=== PATIENT | male | born 1970 | race Caucasian/White ===

== ENCOUNTER → 2019-02-08 | Outpatient (CLI) | payer BC ==
--- NOTE | 2019-02-10 11:07 | MR ---
EXAMINATION TYPE: MR knee RT wo con DATE OF EXAM: 02/08/2019 COMPARISON: None HISTORY: Rt knee pain/ID, prior scope TECHNIQUE: Multiplanar, multisequence imaging of the right knee is performed without IV contrast. FINDINGS: Anterior cruciate, posterior cruciate, medial collateral, and lateral collateral ligaments intact. Lateral meniscus has a normal appearance. Medial meniscus has a normal appearance. There is a trace amount of fluid in the suprapatellar bursa. Quadriceps and patellar tendons intact. Mild arthropathy of the patellofemoral joint and medial compartment of the knee with no evidence of e rosive change. No active marrow edema or contusion. There is a multilocular cystic change involving the patella likely reactive very minimal grade II cho ndromalacia along the lateral patellar facet. Mild arthropathy of the lateral patellar facet. There is cystic changes seen in the popliteal fossa surrounding the posterior cruciate ligament. As n oted above PCL is intact with no evidence of tear. There is a small amount of edema within Hoffa's fat pad. There is suggestion of mild cartilaginous th inning along the anterior margin of the medial femoral condyle which may represent a focal area of ch ondromalacia. IMPRESSION: 1. No evidence of meniscal or ligamentous tear. 2. Osteoarthritis with a focal area of chondromalacia involving the anterior margin of the medial fem oral condyle. 3. There is cystic changes involving the posterior margin of the knee joint near the level of the PCL with no diagnostic evidence of PCL injury. May been the basis of synovial or ganglion cysts or small popliteal fossa cyst. 4. Nonspecific marrow edema within Hoffa's fat pad occasionally may be seen with fat pad impingement syndrome. There does appear to be a area of localized chondromalacia involving the medial margin of t he anterior medial femur at this level. Correlate clinically
== END | disposition home or self-care (01) ==
LOC: RADMRIMAIN 20:04
PROVIDERS: ATTEND Internal Medicine
DX: M17.11 Unilateral primary osteoarthritis, right knee (principal); M94.261 Chondromalacia, right knee; M25.861 Other specified joint disorders, right knee

== ENCOUNTER 2019-06-23 17:49 | Observation (INO) | payer BC ==
[2019-06-23] MEDS ORDERED: NITROGLYCERIN SL TABS 0.4 MG TAB SUBLINGUAL STA (18:25)
[2019-06-23] MEDS ORDERED: ASPIRIN 81 MG PO STA (18:25)
[2019-06-23] MEDS ORDERED: SODIUM CHLORIDE 0.9% 1,000 ML IV STA (18:25)
[2019-06-23 18:43] LABS: Basophils # (A) 0.1 k/uL (0-0.2); Basophils % (A) 1 %; Eosinophils # (A) 0.3 k/uL (0-0.7); Eosinophils % (A) 4 %; HCT 46.1 % (39.0-53.0); HGB 15.5 gm/dL (13.0-17.5); Lymphocytes % (A) 33 %; MCH 30.8 pg (25.0-35.0); MCHC 33.6 g/dL (31.0-37.0); MCV 91.9 fL (80.0-100.0); Mean Platelet Volume 6.4; Monocytes # (A) 0.6 k/uL (0-1.0); Monocytes % (A) 6 %; Neutrophils % (A) 55 %; Platelet Count 273 k/uL (150-450); RBC 5.02 m/uL (4.30-5.90); RDW 12.8 % (11.5-15.5); WBC 9.1 k/uL (3.8-10.6)
--- NOTE | 2019-06-23 18:57 | XR ---
EXAMINATION TYPE: XR chest 2V DATE OF EXAM: 06/23/2019 COMPARISON: EXAMINATION TYPE: XR chest 2V DATE OF EXAM: 06/23/2019 COMPARISON: NONE HISTORY: Chest pain TECHNIQUE: 2 views FINDINGS: Heart and mediastinum are normal. There is mild coarsening of the lower lobe lung markings. There is no heart failure. There are chest leads. Costophrenic angles are clear. IMPRESSION: Slight increased lung markings. No heart failure or pulmonary consolidation.
[2019-06-23 18:59] LABS: D-Dimer 0.28 mg/L FEU (<0.60); INR 0.8 (<1.2); Partial Thromboplastin Time 25.5 sec (22.0-30.0); Prothrombin Time 9.3 sec (9.0-12.0)
[2019-06-23 19:01] LABS: ALT 24 U/L (21-72); AST 21 U/L (17-59); African American GFR (CKD) >90 (>60 ml/min/1.73 sqM); Albumin 4.1 g/dL (3.5-5.0); Alkaline Phosphatase 99 U/L (38-126); Anion Gap 9 mmol/L; Blood Urea Nitrogen 13 mg/dL (9-20); Calcium 9.7 mg/dL (8.4-10.2); Carbon Dioxide 22 mmol/L (22-30); Chloride 108 mmol/L (98-107); Glucose 94 mg/dL (74-99); Potassium 4.7 mmol/L (3.5-5.1); Sodium 139 mmol/L (137-145); Total Bilirubin 0.2 mg/dL (0.2-1.3); Total Protein 7.1 g/dL (6.3-8.2)
--- NOTE | 2019-06-23 19:02 | ED ---
General Adult HPI - General Source: patient, RN notes reviewed, old records reviewed Mode of arrival: wheelchair Limitations: no limitations <Jose Charles - Last Filed: 06/23/19 20:06> <Maira Llanos - Last Filed: 06/24/19 01:13> - General Chief complaint: Chest Pain Stated complaint: Chest Pain Time Seen by Provider: 06/23/19 18:18 - History of Present Illness Initial comments: 49-year-old male patient with past history of reported IA with stent placement approximately 5 years ago presents to ED with chief complaint of chest pain which began last night, and waxing and waning throughout the day. Patient reports that sharp pain in his left parasternal region. She denies any association with exertion, denies any associated symptoms including diaphoresis, nausea vomiting. Patient does report that he did have some pain radiating to his left arm. Denies any shortness of breath. Denies any other complaints at this time. Systemic: Pt denies fatigue, fever/chills, rash. Pt denies weakness, night sw eats, weight loss. Neuro: Pt denies headache, visual disturbances, syncope or pre-syncope. HEENT: Pt denies ocular discharge or irritation, otalgia, rhinorrhea, pharyngitis or notable lymphadenopathy. Cardiopulmonary: Pt deniesSOB, heart palpitations, dyspnea on exertion. Abdominal/GI: Pt denies abdominal pain, n/v/d. : Pt denies dysuria, burning w/ urination, frequency/urgency. Denies new onset urinary or bowel incontinence. MSK: Pt denies myalgia, loss of strength or function in extremities. Neuro: Pt denies new onset weakness, paresthesias. (Jose Charles) - Related Data Home Medications Medication Instructions Recorded Confirmed Diclofenac Sodium [Voltaren] 75 mg PO BID 06/23/19 06/23/19 Allergies Allergy/AdvReac Type Severity Reaction Status Date / Time citalopram hydrobromide Allergy Rash/Hives Verified 06/23/19 18:49 [From Celexa] Review of Systems ROS Other: All systems not noted in ROS Statement are negative. <Jose Charles - Last Filed: 06/23/19 20:06> ROS Other: All systems not noted in ROS Statement are negative. <Viet,Maira E - Last Filed: 06/24/19 01:13> ROS Statement: Those systems with pertinent positive or pertinent negative responses have been documented in the HPI. Past Medical History Past Medical History: Coronary Artery Disease (CAD), Hyperlipidemia, Hypertension, Myocardial Infarction (IA) History of Any Multi-Drug Resistant Organisms: None Reported Past Surgical History: Heart Catheterization With Stent Past Psychological History: No Psychological Hx Reported Smoking Status: Current every day smoker Past Alcohol Use History: None Reported Past Drug Use History: None Reported <Jose Charles Evert - Last Filed: 06/23/19 20:06> - Past Family History Mother Additional Family Medical History / Comment(s): bipolar, osteoparosis Father Family Medical History: Coronary Artery Disease (CAD), Rheumatoid Arthritis (RA) Sister(s) Additional Family Medical History / Comment(s): bipolar Brother(s) Family Medical History: Coronary Artery Disease (CAD) Additional Family Medical History / Comment(s): AICD placement Son(s) Additional Family Medical History / Comment(s): aspergers Daughter(s) Family Medical History: No Reported History <Maira Llanos - Last Filed: 06/24/19 01:13> General Exam Limitations: no limitations <Cuauhtemoc Charlesothy Evert - Last Filed: 06/23/19 20:06> - General Exam Comments Initial Comments: Constitutional: NAD, AOX3, Pt has pleasant affect. HEENT: NC/AT, trachea midline, neck supple, no lymphadenopathy. Posterior pharynx non erythematous, without exudates. External ears appear normal, without discharge. Mucous membranes moist. Eyes PERRLA, EOM intact. There is no scleral icterus. No pallor noted. Cardiopulmonary: RRR, no murmurs, rubs or gallops, no JVD noted. Lungs CTAB in anterior and posterior marina. No peripheral edema. Abdominal exam: Abdomen soft and non-distended. Abdomen non-tender to palpation in all 4 quadrants. Bowel sounds active in LLQ. No hepatosplenomegaly. No ecchymosis Neuro: CN II-XII grossly intact. No nuchal rigidity. No raccon eyes, no moss sign, no hemotympanum. No cervical spinal tenderness. MSK: No posterior calf tenderness bilaterally, homans sign negative bilaterally. Posterior tibialis and radial pulse +2 bilaterally. Sensation intact in upper and lower extremities. Full active ROM in upper and lower extremities, 5/5 stregnth. (Jose Charles) Course Vital Signs 06/23/19 06/23/19 06/23/19 17:55 18:29 20:20 Temperature 98.1 F Pulse Rate 79 69 58 L Respiratory 18 18 18 Rate Blood Pressure 117/78 117/83 124/83 O2 Sat by Pulse 99 96 96 Oximetry 06/23/19 20:23 Temperature 98.1 F Pulse Rate 58 L Respiratory 18 Rate Blood Pressure 124/83 O2 Sat by Pulse 96 Oximetry Medical Decision Making - Lab Data Result diagrams: 06/23/19 18:30 06/23/19 18:30 - EKG Data -: EKG Interpreted by Me (and Dr. Llanos) <Jose Charles - Last Filed: 06/23/19 20:06> - Lab Data Result diagrams: 06/23/19 18:30 06/23/19 18:30 <Maira Llanos - Last Filed: 06/24/19 01:13> - Medical Decision Making 49-year-old male patient with past history of reported IA with stent placement approximately 5 years ago presents to ED with chief complaint of chest pain which began last night, and waxing and waning throughout the day. Patient reports that sharp pain in his left parasternal region. She denies any association with exertion, denies any associated symptoms including diaphoresis, nausea vomiting. Patient does report that he did have some pain radiating to his left arm. Denies any shortness of breath. Denies any other complaints at this time. Patient was in stable, afebrile. Physical exam didn't display acute pathology. Upon investigation is negative, d-dimer negative, troponin negative. BNP 22. EKG not concerning for acute ischemia. Chest pain did resolve with sublingual nitro. Case is discussed with attending physician Dr. Llanos who evaluated pt and discussed case with accepting physician Dr. Thorpe recommended initiation of low intensity heparin therapy and admission for she'll troponins and cardiology consultation. (Jose Charles) I, Dr. Maira Llanos, Personally saw and examined the patient. I have reviewed and agree with the FENDER REPAIRER/PA findings, including all diagnostic interpretations and treatment plans as written unless otherwise stated. I was present for the singh portions of any procedures and the inclusive time noted for any critical care treatment. (Maira Llanos) - Lab Data Lab Results 06/23/19 06/23/19 06/23/19 Range/Units 18:30 18:30 18:30 WBC 9.1 (3.8-10.6) k/uL RBC 5.02 (4.30-5.90) m/uL Hgb 15.5 (13.0-17.5) gm/dL Hct 46.1 (39.0-53.0) % MCV 91.9 (80.0-100.0) fL MCH 30.8 (25.0-35.0) pg MCHC 33.6 (31.0-37.0) g/dL RDW 12.8 (11.5-15.5) % Plt Count 273 (150-450) k/uL Neutrophils % 55 % Lymphocytes % 33 % Monocytes % 6 % Eosinophils % 4 % Basophils % 1 % Neutrophils # 5.0 (1.3-7.7) k/uL Lymphocytes # 3.0 (1.0-4.8) k/uL Monocytes # 0.6 (0-1.0) k/uL Eosinophils # 0.3 (0-0.7) k/uL Basophils # 0.1 (0-0.2) k/uL PT 9.3 (9.0-12.0) sec INR 0.8 (<1.2) APTT 25.5 (22.0-30.0) sec D-Dimer 0.28 (<0.60) mg/L FEU Sodium 139 (137-145) mmol/L Potassium 4.7 (3.5-5.1) mmol/L Chloride 108 H (98-107) mmol/L Carbon Dioxide 22 (22-30) mmol/L Anion Gap 9 mmol/L BUN 13 (9-20) mg/dL Creatinine 0.77 (0.66-1.25) mg/dL Est GFR (CKD-EPI)AfAm >90 (>60 ml/min/1.73 sqM) Est GFR (CKD-EPI)NonAf >90 (>60 ml/min/1.73 sqM) Glucose 94 (74-99) mg/dL Calcium 9.7 (8.4-10.2) mg/dL Magnesium 2.0 (1.6-2.3) mg/dL Total Bilirubin 0.2 (0.2-1.3) mg/dL AST 21 (17-59) U/L ALT 24 (21-72) U/L Alkaline Phosphatase 99 (38-126) U/L Troponin I (0.000-0.034) ng/mL NT-Pro-B Natriuret Pep pg/mL Total Protein 7.1 (6.3-8.2) g/dL Albumin 4.1 (3.5-5.0) g/dL 06/23/19 06/23/19 Range/Units 18:30 18:30 WBC (3.8-10.6) k/uL RBC (4.30-5.90) m/uL Hgb (13.0-17.5) gm/dL Hct (39.0-53.0) % MCV (80.0-100.0) fL MCH (25.0-35.0) pg MCHC (31.0-37.0) g/dL RDW (11.5-15.5) % Plt Count (150-450) k/uL Neutrophils % % Lymphocytes % % Monocytes % % Eosinophils % % Basophils % % Neutrophils # (1.3-7.7) k/uL Lymphocytes # (1.0-4.8) k/uL Monocytes # (0-1.0) k/uL Eosinophils # (0-0.7) k/uL Basophils # (0-0.2) k/uL PT (9.0-12.0) sec INR (<1.2) APTT (22.0-30.0) sec D-Dimer (<0.60) mg/L FEU Sodium (137-145) mmol/L Potassium (3.5-5.1) mmol/L Chloride (98-107) mmol/L Carbon Dioxide (22-30) mmol/L Anion Gap mmol/L BUN (9-20) mg/dL Creatinine (0.66-1.25) mg/dL Est GFR (CKD-EPI)AfAm (>60 ml/min/1.73 sqM) Est GFR (CKD-EPI)NonAf (>60 ml/min/1.73 sqM) Glucose (74-99) mg/dL Calcium (8.4-10.2) mg/dL Magnesium (1.6-2.3) mg/dL Total Bilirubin (0.2-1.3) mg/dL AST (17-59) U/L ALT (21-72) U/L Alkaline Phosphatase (38-126) U/L Troponin I <0.012 (0.000-0.034) ng/mL NT-Pro-B Natriuret Pep 22 pg/mL Total Protein (6.3-8.2) g/dL Albumin (3.5-5.0) g/dL - EKG Data EKG Comments: that regard 75,. Follow 126, QRS 86, QT/QTC 3 02/17/1937. Normal sinus rhythm, normal EKG, no concern for acute ischemia. (Jose Charles) Disposition Is patient prescribed a controlled substance at d/c from ED?: No <Jose Charles - Last Filed: 06/23/19 20:06> <Maira Llanos - Last Filed: 06/24/19 01:13> Clinical Impression: Chest pain Disposition: ADMITTED IP TO THIS HOSP Condition: Stable
[2019-06-23] MEDS ORDERED: HEPARIN SODIUM,PORCINE 5,000 UNIT/ML 1 ML VIAL IV ONE (19:59)
[2019-06-23] MEDS ORDERED: HEPARIN SODIUM,PORCINE 5,000 UNIT/ML 1 ML VIAL IV PRN (19:59)
[2019-06-23] MEDS ORDERED: HEPARIN SOD,PORK IN 0.45% NACL 25,000 UNIT in 0.45% NACL 1 250ML.BAG IV SCH (20:00)
[2019-06-23] MEDS ORDERED: NITROGLYCERIN SL TABS 0.4 MG TAB SUBLINGUAL PRN (20:04)
[2019-06-23] MEDS ORDERED: ACETAMINOPHEN TAB 325 MG TAB PO PRN (20:04)
[2019-06-24] MEDS ORDERED: IBUPROFEN 600 MG TAB PO STA (02:47)
[2019-06-24 07:04] LABS: Basophils % (A) 0 %; Eosinophils # (A) 0.3 k/uL (0-0.7); Eosinophils % (A) 4 %; HCT 45.3 % (39.0-53.0); HGB 14.9 gm/dL (13.0-17.5); Lymphocytes % (A) 50 %; MCH 30.7 pg (25.0-35.0); MCHC 32.8 g/dL (31.0-37.0); MCV 93.6 fL (80.0-100.0); Mean Platelet Volume 6.3; Monocytes # (A) 0.5 k/uL (0-1.0); Monocytes % (A) 6 %; Neutrophils % (A) 38 %; Platelet Count 249 k/uL (150-450); RBC 4.84 m/uL (4.30-5.90); RDW 12.8 % (11.5-15.5)
[2019-06-24 07:43] VITALS: RESP 17
[2019-06-24 07:57] LABS: Cholesterol 178 mg/dL (<200); HDL Cholesterol 40 mg/dL (40-60); LDL Cholesterol,Calculated 114 mg/dL (0-99); Triglycerides 122 mg/dL (<150)
[2019-06-24] MEDS ORDERED: ASPIRIN 325 MG TAB PO SCH (09:00)
[2019-06-24] MEDS ORDERED: DOBUTamine DRIP for NUC MED 500 MG in DEXTROSE/WATER 1 250ML.BAG IV ONE (09:35)
--- NOTE | 2019-06-24 11:17 | P.CRDCN ---
History of Present Illness History of present illness: This is Lynette Sinha PA-C dictating a consult on this patient The patient was interviewed and examined by me as well as by Dr. Narayanan Case discussed with Dr. Narayanan and he agrees with the plan of care IMPRESSION / ASSESSMENT: Atypical chest discomfort, troponins negative, no ST or T wave abnormalities and EKG CAD status post stent placement in 2013 Dyslipidemia, was previously on atorvastatin but stopped it due to myalgia Current smoker PLAN: Stop heparin and nitro Dobutamine stress echo to rule out progression of CAD Start Pravachol 10 mg daily Smoking cessation advised HPI Patient is a 49-year-old male with past medical history of CAD status post stenting who presented with complaints of chest discomfort 2 days. Patient was sitting down at his daughter's wedding when he experienced sudden onset left sided chest discomfort which he described as "a muscle spasm". He also felt a little sweaty and had a slight headache. Denies shortness of breath, nausea, dizziness, lightheadedness or palpitations. the pain was nonexertional and he denied any heavy lifting or strenuous activities that day or the past week. the pain was intermittent over the last 2 days. He also felt fatigued. He states that the pain was similar to the pain that he had when he had an OR and stent placed 5 years ago but much less severe. Upon admission his vital signs were stable. His EKG showed sinus mechanism without any ST or T-wave abnormalities. Troponins and d-dimer were negative. Patient seen and examined resting in bed. States his chest discomfort has resolved. Denies any shortness of breath, dizziness, lightheadedness. Patient is a current smoker and smokes one pack per day, denies alcohol Nondiabetic ROS: No fevers, chills or rigors, no cough, phlegm or expectoration, no nausea, vomiting or diarrhea, no hematuria, dysuria, no strokes or seizures, Positive for hip pain no skin lesions. EXAMINATION: Temperature 97.5F, pulse 51, respirations 17, blood pressure 104/71, oxygen saturation 97% on room air Patient seen and examined resting comfortably in bed, in no acute distress Lungs clear to auscultation bilaterally, no wheezing, rhonchi or crackles Heart is regular, normal S1-S2, no murmurs rubs or gallops Anterior chest is nontender to palpation No lower extremity edema REVIEW OF LABS, ECG & MEDICAL DATA WBC 8.0, hemoglobin 14.9, platelets 249, potassium 4.7, B1 13, creatinine 0.77, magnesium 2.0 D-dimer negative Troponins negative 3 Total cholesterol 178, triglycerides 122, LDL 114, HDL 40 Chest x-ray showed slight increased lung markings, no heart failure or pulmonary consolidation Cardiac cath report from [facility] reviewed, patient had a 70% stenosis in the ramus intermedius, 40-50% stenosis in the diagonal branch, and mild atherosclerotic plaque in the proximal part of the RCA, he underwent angioplasty of the ramus intermedius Last [facility] from [facility] reviewed, his low level stress test after his stent in 2013 was normal Past Medical History Past Medical History: Coronary Artery Disease (CAD), Hyperlipidemia, Hypertension, Myocardial Infarction (OR) Last Myocardial Infarction Date:: 2013 History of Any Multi-Drug Resistant Organisms: None Reported Past Surgical History: Heart Catheterization With Stent Additional Past Surgical History / Comment(s): bilat knee scopes Past Anesthesia/Blood Transfusion Reactions: No Reported Reaction Date of Last Stent Placement:: 2013 Past Psychological History: No Psychological Hx Reported Smoking Status: Current every day smoker Past Alcohol Use History: None Reported Past Drug Use History: None Reported - Past Family History Mother Additional Family Medical History / Comment(s): bipolar, osteoparosis Father Family Medical History: Coronary Artery Disease (CAD), Rheumatoid Arthritis (RA) Sister(s) Additional Family Medical History / Comment(s): bipolar Brother(s) Family Medical History: Coronary Artery Disease (CAD) Additional Family Medical History / Comment(s): AICD placement Son(s) Additional Family Medical History / Comment(s): aspergers Daughter(s) Family Medical History: No Reported History Medications and Allergies Home Medications Medication Instructions Recorded Confirmed Type Diclofenac Sodium [Voltaren] 75 mg PO BID 06/23/19 06/23/19 History Aspirin 81 mg PO DAILY chew 06/24/19 Rx Pravastatin Sodium [Pravachol] 10 mg PO HS #90 tab 06/24/19 Rx Allergies Allergy/AdvReac Type Severity Reaction Status Date / Time citalopram hydrobromide Allergy Rash/Hives Verified 06/23/19 18:49 [From Celexa] Physical Exam Vitals: Vital Signs Temp Pulse Pulse Resp BP BP Pulse Ox 06/24/19 07:41 97.5 F L 51 L 17 104/71 97 06/24/19 04:00 97.7 F 66 18 107/72 98 06/23/19 23:27 97.7 F 62 18 122/76 99 06/23/19 20:45 97.6 F 59 L 18 118/79 99 06/23/19 20:23 98.1 F 58 L 18 124/83 96 06/23/19 20:20 58 L 18 124/83 96 06/23/19 18:29 69 18 117/83 96 06/23/19 17:55 98.1 F 79 18 117/78 99 Intake and Output 06/23/19 06/24/19 06/24/19 22:59 06:59 14:59 Intake Total 222 60.667 Balance 222 60.667 Intake: Intake, IV Titration 60.667 Amount Heparin Sod,Pork in 0.45% 60.667 NaCl 25,000 unit In 0.45 % NaCl 1 250ml.bag @ 9.11 UNITS/KG/HR 10 mls/hr IV .Q24H [facility] Rx#:[id number] Oral 222 Other: Voiding Method Toilet Toilet Toilet # Voids 2 Weight 109.769 kg Results 06/24/19 06:53 06/23/19 18:30 Cardiac Enzymes 06/23/19 06/23/19 06/24/19 Range/Units 18:30 18:30 01:21 AST 21 (17-59) U/L Troponin I <0.012 <0.012 (0.000-0.034) ng/mL 06/24/19 Range/Units 06:53 AST (17-59) U/L Troponin I <0.012 (0.000-0.034) ng/mL Coagulation 06/23/19 06/24/19 06/24/19 Range/Units 18:30 01:21 06:53 PT 9.3 (9.0-12.0) sec APTT 25.5 41.0 H 61.3 H (22.0-30.0) sec Lipids 06/24/19 Range/Units 06:53 Triglycerides 122 (<150) mg/dL Cholesterol 178 (<200) mg/dL HDL Cholesterol 40 (40-60) mg/dL CBC 06/23/19 06/24/19 Range/Units 18:30 06:53 WBC 9.1 8.0 (3.8-10.6) k/uL RBC 5.02 4.84 (4.30-5.90) m/uL Hgb 15.5 14.9 (13.0-17.5) gm/dL Hct 46.1 45.3 (39.0-53.0) % Plt Count 273 249 (150-450) k/uL Comprehensive Metabolic Panel 06/23/19 Range/Units 18:30 Sodium 139 (137-145) mmol/L Potassium 4.7 (3.5-5.1) mmol/L Chloride 108 H (98-107) mmol/L Carbon Dioxide 22 (22-30) mmol/L BUN 13 (9-20) mg/dL Creatinine 0.77 (0.66-1.25) mg/dL Glucose 94 (74-99) mg/dL Calcium 9.7 (8.4-10.2) mg/dL AST 21 (17-59) U/L ALT 24 (21-72) U/L Alkaline Phosphatase 99 (38-126) U/L Total Protein 7.1 (6.3-8.2) g/dL Albumin 4.1 (3.5-5.0) g/dL Current Medications Generic Name Dose Route Start Last Admin Trade Name Freq PRN Reason Stop Dose Admin Acetaminophen 650 mg 06/23/19 20:04 06/23/19 20:19 Tylenol Tab PO 650 mg Q4HR PRN Administration Pain Aspirin 325 mg 06/24/19 09:00 Aspirin PO DAILY [facility] Heparin Sodium (Porcine) 0 unit 06/23/19 19:59 06/24/19 02:35 Heparin IV 2,725 unit PER PROTOCOL PRN Administration Low PTT Protocol Heparin Sodium/Sodium Chloride 250 mls @ 10 mls/hr 06/23/19 20:00 06/24/19 02:20 25,000 unit/ Sodium Chloride IV 11.11 units/kg/hr .Q24H GABE 12.195 mls/hr Titration Protocol 9.11 UNITS/KG/HR Nitroglycerin 0.4 mg 06/23/19 20:04 Nitrostat SUBLINGUAL Q5M PRN Chest Pain Intake and Output 06/23/19 06/24/19 06/24/19 22:59 06:59 14:59 Intake Total 222 60.667 Balance 222 60.667 Intake: Intake, IV Titration 60.667 Amount Heparin Sod,Pork in 0.45% 60.667 NaCl 25,000 unit In 0.45 % NaCl 1 250ml.bag @ 9.11 UNITS/KG/HR 10 mls/hr IV .Q24H [facility] Rx#:[id number] Oral 222 Other: Voiding Method Toilet Toilet Toilet # Voids 2 Weight 109.769 kg 06/24/19 06:53 06/23/19 18:30
--- NOTE | 2019-06-24 11:46 | ECHOS ---
STRESS ECHOCARDIOGRAM DATE OF SERVICE: 06/24/2019 INDICATIONS: Chest pain. MEDICATIONS: BASELINE HEART RATE: 63 BASELINE BLOOD PRESSURE: 152/43 MAXIMUM HEART RATE: 145 MAXIMUM BLOOD PRESSURE: 241/64 85% MPHR: 145 100% MPHR: 170 METS: MAXIMUM STAGE REACHED: TOTAL EXERCISE TIME: CLINICAL INFORMATION: This is a dobutamine stress echo Baseline heart rate 63 beats per minute. Baseline blood pressure 152/43 mmHg. Baseline 12-lead ECG shows normal sinus rhythm with normal cardiac intervals. Patient received dobutamine infusion per protocol. Peak heart rate 145 beats per minute, hypertensive response 241/64 mmHg. There was no definite ECG evidence for ischemia. Occasional PVCs and ventricular couplets were noted. The patient did not have any symptoms of chest discomfort. No sustained or nonsustained arrhythmias were noted. The baseline 2-D echo images were suboptimal; therefore Definity contrast was used to delineate the LV endocardial borders. The LV appeared mildly dilated with global left ventricular systolic function in the range of about 50%; however, with dobutamine, there was a stepwise increment in overall LV contractility without development of any wall motion abnormalities. At recovery regional global LV systolic function remained normal. Definity contrast had to be used to delineate the LV endocardial borders. IMPRESSION: 1. No ECG evidence for ischemia. 2. Occasional PVCs and ventricular couplets noted. 3. Mildly hypertensive response to dobutamine at peak infusion. 4. No clear-cut echocardiographic evidence for ischemia. MMODL / IJN: [id number] /
[2019-06-24 15:34] VITALS: BP 122/66; PULSE 56; TEMP 97.7
--- NOTE | 2019-06-24 17:16 | P.HPIM ---
History of Present Illness This is combined H and P and discharge summary This is a pleasant 49 years old male with past medical history of coronary artery disease, hyperlipidemia, hypertension, status post cardiac cath and stent. Presents because of chest pain. With no associated dyspnea or cough. Distended is completely resolved. Patient has been evaluated by banbury mixer operator and he recommended stress test which came back negative for reproducible ische faith. Patient has been cleared by cardiology team for discharge. Patient is back to his baseline with no other symptoms. His chest pain currently is 0/10. No dyspnea. No change in urine or bowel habits. No abdominal pain. No nausea vomiting. No fever. He is alert and I 12. Problems and management plan were discussed with the patient and he verbalized understanding and acceptance Patient was found stable and can be discharged home however he needs follow-up as an outpatient. Patient was instructed to follow up with his PCP in one week and he agrees. Also he was instructed to follow up with his banbury mixer operator and he agrees with the banbury mixer operator appointment and timing made for him and he states he will follow-up. Gen: patient is a AAOx3, no distress CVS: S1-S2, RRR, no murmur Lungs: B/L CTA, no wheezing Abdomen: soft, no distention, no tenderness, positive bowel sounds Extremity: no leg edema or induration Time spent more than 35 minutes Past Medical History Past Medical History: Coronary Artery Disease (CAD), Hyperlipidemia, Hypertensi on, Myocardial Infarction ([place]) Last Myocardial Infarction Date:: 2013 History of Any Multi-Drug Resistant Organisms: None Reported Past Surgical History: Heart Catheterization With Stent Additional Past Surgical History / Comment(s): bilat knee scopes Past Anesthesia/Blood Transfusion Reactions: No Reported Reaction Date of Last Stent Placement:: 2013 Past Psychological History: No Psychological Hx Reported Smoking Status: Current every day smoker Past Alcohol Use History: None Reported Past Drug Use History: None Reported - Past Family History Mother Additional Family Medical History / Comment(s): bipolar, osteoparosis Father Family Medical History: Coronary Artery Disease (CAD), Rheumatoid Arthritis (RA) Sister(s) Additional Family Medical History / Comment(s): bipolar Brother(s) Family Medical History: Coronary Artery Disease (CAD) Additional Family Medical History / Comment(s): AICD placement Son(s) Additional Family Medical History / Comment(s): aspergers Daughter(s) Family Medical History: No Reported History Medications and Allergies Home Medications Medication Instructions Recorded Confirmed Type Diclofenac Sodium [Voltaren] 75 mg PO BID 06/23/19 06/23/19 History Aspirin 81 mg PO DAILY chew 06/24/19 Rx Pravastatin Sodium [Pravachol] 10 mg PO HS #90 tab 06/24/19 Rx Allergies Allergy/AdvReac Type Severity Reaction Status Date / Time citalopram hydrobromide Allergy Rash/Hives Verified 06/23/19 18:49 [From Celexa] Physical Exam Vitals: Vital Signs Temp Pulse Pulse Resp BP BP Pulse Ox 06/24/19 15:33 97.7 F 56 L 17 122/66 97 06/24/19 11:57 97.3 F L 67 17 131/89 100 06/24/19 10:06 98 06/24/19 07:41 97.5 F L 51 L 17 104/71 97 06/24/19 04:00 97.7 F 66 18 107/72 98 06/23/19 23:27 97.7 F 62 18 122/76 99 06/23/19 20:45 97.6 F 59 L 18 118/79 99 06/23/19 20:23 98.1 F 58 L 18 124/83 96 06/23/19 20:20 58 L 18 124/83 96 06/23/19 18:29 69 18 117/83 96 06/23/19 17:55 98.1 F 79 18 117/78 99 Intake and Output 06/24/19 06/24/19 06/24/19 06:59 14:59 22:59 Intake Total 60.667 Balance 60.667 Intake: Intake, IV Titration 60.667 Amount Heparin Sod,Pork in 0.45% 60.667 NaCl 25,000 unit In 0.45 % NaCl 1 250ml.bag @ 9.11 UNITS/KG/HR 10 mls/hr IV .Q24H [facility] Rx#:[id number] Other: Voiding Method Toilet Toilet # Voids 2 1 Results CBC & Chem 7: 06/24/19 06:53 06/23/19 18:30 Labs: Abnormal Lab Results - Last 24 Hours (Table) 08/11/19 08/12/19 08/12/19 Range/Units 18:30 01:21 06:53 APTT 41.0 H (22.0-30.0) sec Chloride 108 H (98-107) mmol/L LDL Cholesterol, Calc 114 H (0-99) mg/dL 06/24/19 Range/Units 06:53 APTT 61.3 H (22.0-30.0) sec Chloride (98-107) mmol/L LDL Cholesterol, Calc (0-99) mg/dL Thrombosis Risk Factor Assmnt - Choose All That Apply Any of the Below Risk Factors Present?: Yes Each Factor Represents 1 point: Age 41-60 years, Obesity (BMI >25) Other Risk Factors: No Other congenital or acquired thrombophilia - If yes, enter type in comment: No Thrombosis Risk Factor Assessment Total Risk Factor Score: 2 Thrombosis Risk Factor Assessment Level: Low Risk
--- NOTE | 2019-06-24 18:21 | ECHOF ---
Referral Reason:chest pain MEASUREMENTS -------- HEIGHT: 185.4 cm WEIGHT: 109.8 kg BP: 107/72 IVSd: 1.1 cm (0.6 - 1.1) LVIDd: 5.2 cm (3.9 - 5.3) LVPWd: 1.2 cm (0.6 - 1.1) IVSs: 1.6 cm LVIDs: 3.9 cm LVPWs: 2.0 cm RVIDd: 3.1 cm (< 3.3) LAESV Index (A-L): 28.60 ml/m Ao Diam: 3.3 cm (2.0 - 3.7) LA Diam: 4.2 cm (2.7 - 3.8) AV Cusp: 2.0 cm (1.5 - 2.6) EPSS: 1.7 cm MV E Chacorta: 1.00 m/s MV DecT: 250 ms MV A Chacorta: 0.55 m/s MV E/A Ratio: 1.83 RAP: 5.00 mmHg RVSP: 20.03 mmHg MV EF SLOPE: 132.69 mm/s (70 - 150) MV EXCURSION: 1.90 cm (> 18.000) FINDINGS -------- Resting bradycardia (HR<60bpm). This was a technically difficult study with suboptimal views. The left ventricular size is normal. There is mild concentric left ventricular hypertrophy. Overa ll left ventricular systolic function is low-normal with, an EF between 50 - 55 %. The diastolic fi lling pattern is normal for the age of the patient. The right ventricle is normal in size. Left atrium is normal size by volume. The right atrium is mildly enlarged. Lumason used The aortic valve is trileaflet and appears structurally normal. There is no evidence of aortic regu rgitation. There is no evidence of aortic stenosis. Mild mitral regurgitation is present. Mild tricuspid regurgitation present. There is no evidence of pulmonary hypertension. The right v entricular systolic pressure, as measured by Doppler, is 20.03mmHg. There is no pulmonic regurgitation present. The aortic root size is normal. IVC not well visualized There is no pericardial effusion. CONCLUSIONS -------- 1. Resting bradycardia (HR<60bpm). 2. This was a technically difficult study with suboptimal views. 3. The left ventricular size is normal. 4. There is mild concentric left ventricular hypertrophy. 5. Overall left ventricular systolic function is low-normal with, an EF between 50 - 55 %. 6. The diastolic filling pattern is normal for the age of the patient. 7. The right ventricle is normal in size. 8. Left atrium is normal size by volume. 9. The right atrium is mildly enlarged. 10. Lumason used 11. The aortic valve is trileaflet and appears structurally normal. 12. There is no evidence of aortic regurgitation. 13. There is no evidence of aortic stenosis. 14. Mild mitral regurgitation is present. 15. Mild tricuspid regurgitation present. 16. There is no evidence of pulmonary hypertension. 17. The right ventricular systolic pressure, as measured by Doppler, is 20.03mmHg. 18. There is no pulmonic regurgitation present. 19. The aortic root size is normal. 20. There is no pericardial effusion. [employer]: Irma Carlin RDCS
[2019-06-24] MEDS ORDERED: PRAVASTATIN SODIUM 20 MG TAB PO SCH (21:00)
[2019-06-25] MEDS ORDERED: ASPIRIN 81 MG PO SCH (09:00)
== END 2019-06-24 17:55 | disposition home or self-care (01) ==
LOC: EC 17:49 → 1SOBS 19:57
PROVIDERS: ADMIT Internal Medicine; ATTEND Internal Medicine
DX: R07.89 Other chest pain (principal); R51 Headache; R61 Generalized hyperhidrosis; R53.83 Other fatigue; I25.10 Atherosclerotic heart disease of native coronary artery without angina pectoris; E78.5 Hyperlipidemia, unspecified; I10 Essential (primary) hypertension; Z95.5 Presence of coronary angioplasty implant and graft; I25.2 Old myocardial infarction; Z79.82 Long term (current) use of aspirin; Z79.1 Long term (current) use of non-steroidal anti-inflammatories (NSAID); Z79.899 Other long term (current) drug therapy; Z88.8 Allergy status to other drugs, medicaments and biological substances; E66.9 Obesity, unspecified; Z68.31 Body mass index [BMI] 31.0-31.9, adult; F17.210 Nicotine dependence, cigarettes, uncomplicated; Z81.8 Family history of other mental and behavioral disorders; Z82.62 Family history of osteoporosis; Z82.61 Family history of arthritis; Z82.49 Family history of ischemic heart disease and other diseases of the circulatory system; Z84.89 Family history of other specified conditions
CPT/HCPCS: 96366 ×2; 96376 ×2; 96365; 99285; 36415; 94760; 93005; 93306; 93351; 85379; 83880; 80061; 80053; 83735; 84484 ×2; 85025 ×2; 85610; 85730 ×2; 71046; G0378 ×2; J1250; J1644 ×3; Q9950

== ENCOUNTER 2021-10-10 20:11 | Observation (INO) | payer BC, OTHER ==
[2021-10-10] MEDS ORDERED: ASPIRIN 81 MG PO STA (20:18)
--- NOTE | 2021-10-10 20:22 | ED ---
General Adult HPI - General Stated complaint: Chest Pain Time Seen by Provider: 10/10/21 20:13 - History of Present Illness Initial comments: 51 year-old male patient presents to the emergency department for evaluation of chest pain. Symptoms started a few days ago, worse today. States the pain is on and off. States the pain is substernal and radiates to the left neck and the left shoulder. Does have associated shortness of breath. Denies nausea or swe ats. Did have stent placed in 2013. Rates pain at 8/10 on the pain scale. Denies cough or fever. Denies abdominal pain. Does not currently take any blood thinners or aspirin. Reports current smoker. Denies history of diabetes or hypertension. - Related Data Previous Rx's Medication Instructions Recorded Aspirin 81 mg PO DAILY chew 06/24/19 Pravastatin Sodium [Pravachol] 10 mg PO HS #90 tab 06/24/19 Allergies Allergy/AdvReac Type Severity Reaction Status Date / Time citalopram hydrobromide Allergy Rash/Hives Verified 10/10/21 20:17 [From micecloud] Review of Systems ROS Statement: Those systems with pertinent positive or pertinent negative responses have been documented in the HPI. ROS Other: All systems not noted in ROS Statement are negative. Past Medical History Past Medical History: Coronary Artery Disease (CAD), Hyperlipidemia, Hypertension, Myocardial Infarction ([place]) Last Myocardial Infarction Date:: 2013 History of Any Multi-Drug Resistant Organisms: None Reported Past Surgical History: Heart Catheterization With Stent Additional Past Surgical History / Comment(s): bilat knee scopes Past Anesthesia/Blood Transfusion Reactions: No Reported Reaction Date of Last Stent Placement:: 2013 Past Psychological History: No Psychological Hx Reported Past Alcohol Use History: None Reported Past Drug Use History: None Reported - Past Family History Mother Additional Family Medical History / Comment(s): bipolar, osteoparosis Father Family Medical History: Coronary Artery Disease (CAD), Rheumatoid Arthritis (RA) Sister(s) Additional Family Medical History / Comment(s): bipolar Brother(s) Family Medical History: Coronary Artery Disease (CAD) Additional Family Medical History / Comment(s): AICD placement Son(s) Additional Family Medical History / Comment(s): aspergers Daughter(s) Family Medical History: No Reported History General Exam General appearance: alert, in no apparent distress ENT exam: Present: normal exam, normal oropharynx, mucous membranes moist Respiratory exam: Present: normal lung sounds bilaterally. Absent: respiratory distress, wheezes, rales, rhonchi, stridor Cardiovascular Exam: Present: regular rate, normal rhythm, normal heart sounds. Absent: systolic murmur, diastolic murmur, rubs, gallop, clicks GI/Abdominal exam: Present: soft, normal bowel sounds. Absent: distended, tenderness, guarding, rebound, rigid Neurological exam: Present: alert, oriented X3, CN II-XII intact Psychiatric exam: Present: normal affect, normal mood Skin exam: Present: warm, dry, intact, normal color. Absent: rash Course Vital Signs 10/10/21 20:14 Temperature 97.8 F Pulse Rate 77 Respiratory 16 Rate Blood Pressure 152/80 O2 Sat by Pulse 100 Oximetry EKG Findings - EKG Comments: EKG Findings:: EKG obtained at 2022 shows normal sinus rhythm with vent rate of 77, LA interval 122, QRS duration 88, QT 362, QTC 409. NO evidence of ST elevation or depression. Medical Decision Making - Medical Decision Making 51-year-old male patient has medical history significant for coronary artery disease with a stent placed in 2013 presents to the emergency department for evaluation of intermittent chest pain over the last few days with radiation to the left neck and left shoulder. EKG shows normal sinus rhythm with no ST elevation or depression. Chest x-ray is negative. Labs reviewed and show negative troponin. Given history we will admit for serial troponins and evaluation by cardiology. I did discuss findings and results with him and he is agreeable this plan. Case discussed with my attending Dr. Marcelino. - Lab Data Result diagrams: 10/10/21 20:35 10/10/21 20:35 Lab Results 10/10/21 10/10/21 10/10/21 Range/Units 20:35 20:35 20:35 WBC 7.5 (3.8-10.6) k/uL RBC 5.24 (4.30-5.90) m/uL Hgb 16.4 (13.0-17.5) gm/dL Hct 46.4 (39.0-53.0) % MCV 88.4 (80.0-100.0) fL MCH 31.3 (25.0-35.0) pg MCHC 35.4 (31.0-37.0) g/dL RDW 12.5 (11.5-15.5) % Plt Count 252 (150-450) k/uL MPV 6.9 Neutrophils % 41 % Lymphocytes % 43 % Monocytes % 8 % Eosinophils % 5 % Basophils % 1 % Neutrophils # 3.1 (1.3-7.7) k/uL Lymphocytes # 3.2 (1.0-4.8) k/uL Monocytes # 0.6 (0-1.0) k/uL Eosinophils # 0.3 (0-0.7) k/uL Basophils # 0.1 (0-0.2) k/uL PT 9.4 (9.0-12.0) sec INR 0.9 (<1.2) APTT 25.2 (22.0-30.0) sec Sodium 135 L (137-145) mmol/L Potassium 4.6 (3.5-5.1) mmol/L Chloride 104 (98-107) mmol/L Carbon Dioxide 23 (22-30) mmol/L Anion Gap 8 mmol/L BUN 9 (9-20) mg/dL Creatinine 0.87 (0.66-1.25) mg/dL Est GFR (CKD-EPI)AfAm >90 (>60 ml/min/1.73 sqM) Est GFR (CKD-EPI)NonAf >90 (>60 ml/min/1.73 sqM) Glucose 91 (74-99) mg/dL Calcium 9.3 (8.4-10.2) mg/dL Magnesium 2.0 (1.6-2.3) mg/dL Total Bilirubin 0.3 (0.2-1.3) mg/dL AST 26 (17-59) U/L ALT 23 (4-49) U/L Alkaline Phosphatase 104 (38-126) U/L Troponin I (0.000-0.034) ng/mL Total Protein 7.3 (6.3-8.2) g/dL Albumin 4.1 (3.5-5.0) g/dL Lipase 182 (23-300) U/L // Range/Units 20:35 WBC (3.8-10.6) k/uL RBC (4.30-5.90) m/uL Hgb (13.0-17.5) gm/dL Hct (39.0-53.0) % MCV (80.0-100.0) fL MCH (25.0-35.0) pg MCHC (31.0-37.0) g/dL RDW (11.5-15.5) % Plt Count (150-450) k/uL MPV Neutrophils % % Lymphocytes % % Monocytes % % Eosinophils % % Basophils % % Neutrophils # (1.3-7.7) k/uL Lymphocytes # (1.0-4.8) k/uL Monocytes # (0-1.0) k/uL Eosinophils # (0-0.7) k/uL Basophils # (0-0.2) k/uL PT (9.0-12.0) sec INR (<1.2) APTT (22.0-30.0) sec Sodium (137-145) mmol/L Potassium (3.5-5.1) mmol/L Chloride (98-107) mmol/L Carbon Dioxide (22-30) mmol/L Anion Gap mmol/L BUN (9-20) mg/dL Creatinine (0.66-1.25) mg/dL Est GFR (CKD-EPI)AfAm (>60 ml/min/1.73 sqM) Est GFR (CKD-EPI)NonAf (>60 ml/min/1.73 sqM) Glucose (74-99) mg/dL Calcium (8.4-10.2) mg/dL Magnesium (1.6-2.3) mg/dL Total Bilirubin (0.2-1.3) mg/dL AST (17-59) U/L ALT (4-49) U/L Alkaline Phosphatase (38-126) U/L Troponin I <0.012 (0.000-0.034) ng/mL Total Protein (6.3-8.2) g/dL Albumin (3.5-5.0) g/dL Lipase (23-300) U/L - Radiology Data Radiology results: report reviewed, image reviewed 2 views of the chest are obtained. Report was reviewed in its entirety. Impression by Dr. Valdez shows normal chest. No adverse change. Disposition Clinical Impression: Chest pain Disposition: ADMITTED IP TO THIS [facility] Condition: Serious Referrals: Juan Mauro MD [Primary Care Provider] - 1-2 days Decision to Admit Reason: Admit from EC Decision Date: 10/10/21 Decision Time: 22:19
[2021-10-10 21:02] LABS: Basophils # (A) 0.1 k/uL (0-0.2); Basophils % (A) 1 %; Eosinophils # (A) 0.3 k/uL (0-0.7); Eosinophils % (A) 5 %; HCT 46.4 % (39.0-53.0); HGB 16.4 gm/dL (13.0-17.5); Lymphocytes # (A) 3.2 k/uL (1.0-4.8); Lymphocytes % (A) 43 %; MCH 31.3 pg (25.0-35.0); MCHC 35.4 g/dL (31.0-37.0); MCV 88.4 fL (80.0-100.0); Mean Platelet Volume 6.9; Monocytes # (A) 0.6 k/uL (0-1.0); Monocytes % (A) 8 %; Neutrophils # (A) 3.1 k/uL (1.3-7.7); Neutrophils % (A) 41 %; Platelet Count 252 k/uL (150-450); RBC 5.24 m/uL (4.30-5.90); RDW 12.5 % (11.5-15.5); WBC 7.5 k/uL (3.8-10.6)
[2021-10-10 21:15] LABS: ALT 23 U/L (4-49); AST 26 U/L (17-59); African American GFR (CKD) >90 (>60 ml/min/1.73 sqM); Albumin 4.1 g/dL (3.5-5.0); Alkaline Phosphatase 104 U/L (38-126); Anion Gap 8 mmol/L; Blood Urea Nitrogen 9 mg/dL (9-20); Calcium 9.3 mg/dL (8.4-10.2); Carbon Dioxide 23 mmol/L (22-30); Chloride 104 mmol/L (98-107); Glucose 91 mg/dL (74-99); INR 0.9 (<1.2); Lipase 182 U/L (23-300); Non-African American GFR(CKD) >90 (>60 ml/min/1.73 sqM); Partial Thromboplastin Time 25.2 sec (22.0-30.0); Potassium 4.6 mmol/L (3.5-5.1); Prothrombin Time 9.4 sec (9.0-12.0); Sodium 135 mmol/L (137-145); Total Bilirubin 0.3 mg/dL (0.2-1.3); Total Protein 7.3 g/dL (6.3-8.2)
[2021-10-10] MEDS ORDERED: ONDANSETRON 4 MG/2 ML VIAL IVP STA (21:41)
[2021-10-10] MEDS ORDERED: MORPHINE SULFATE 4 MG/ML SYRINGE IVP STA (21:41)
--- NOTE | 2021-10-10 21:50 | XR ---
EXAMINATION TYPE: XR chest 2V DATE OF EXAM: 10/10/2021 COMPARISON: NONE HISTORY: 06/23/2019 TECHNIQUE: 2 views FINDINGS: Heart and mediastinum are normal. Lungs are clear. Diaphragm is normal. Bony thorax appears normal. There are chest leads. IMPRESSION: Normal chest. No adverse change.
[2021-10-10] MEDS ORDERED: MORPHINE SULFATE 4 MG/ML SYRINGE IV PRN (22:16)
[2021-10-10] MEDS ORDERED: NITROGLYCERIN SL TABS 0.4 MG TAB SUBLINGUAL PRN (22:16)
[2021-10-11] MEDS: ASPIRIN 81 MG PO SCH (08:46)
[2021-10-11] MEDS ORDERED: ASPIRIN 325 MG TAB PO SCH (09:00)
[2021-10-11] MEDS ORDERED: HEPARIN SODIUM 1,000 UN/ML (10ML VL) IV ONE ×2 (09:11→09:30)
[2021-10-11] MEDS ORDERED: HEPARIN SODIUM 1,000 UN/ML (10ML VL) IV PRN (09:11)
[2021-10-11] MEDS ORDERED: ALPRAZolam 0.5 MG TAB PO PRN (09:12)
[2021-10-11] MEDS ORDERED: ATORVASTATIN 80 MG TAB PO STA (09:12)
[2021-10-11] MEDS ORDERED: ALPRAZolam 0.25 MG TAB PO PRN (09:12)
[2021-10-11] MEDS ORDERED: HEPARIN SOD,PORK IN 0.45% NACL 25,000 UNIT in 0.45% NACL 1 250ML.BAG IV SCH (09:30)
[2021-10-11] MEDS: SODIUM CHLORIDE 0.9% 1,000 ML in EMPTY BAG 1 BAG IV SCH ×2 (09:42→15:28)
--- NOTE | 2021-10-11 09:52 | P.CRDCN ---
History of Present Illness History of present illness: This is a 51 year old male with a past medical history of coronary artery disease s/p PCI proximal ramus intermedius in 02/2014, history of hypertension and dyslipidemia, chronic nicotine dependence. Patient presents to the emergency department with complaints of chest pain. Chest pain initially started about a week ago. Located on the left side of his chest. Describes it as a "muscle spa sm" and tightness. It is non-radiating. It is aggravated by increased activity. Denies any specific alleviated factors. States it comes and goes but has noticed it become more frequent over the past week. He had associated shortness of breath. He denies associated palpitations, nausea, diaphoresis, lightheadedness, dizziness. He denies symptoms of orthopnea, PND, lower extremity edema, syncope or pre-syncope symptoms. He states this is similar pain back in 2013 when he had an [place] with stent placed, however, at that time he had more associated symptoms. He denies any history of hypertension, stroke, diabetes. Denies family history of CAD. He does continue to smoke 1PPD. Denies alcohol or illicit drug use. He does not take an aspirin or statin any longer. DIAGNOSTICS EKG reveals sinus rhythm, heart rate 77, no significant ST ST-T wave abnormalities. EKG this morning with similar findings. Telemetry tracings indicate sinus mechanism, heart rate 60s to 70s Cardiac catheterization 02/2014 revealed LAD with 4050% stenosis, ramus intermedius 70% stenosis, circumflex free of significant disease, RCA 3040% stenosis. Patient underwent PCI to ramus intermedius Most recent stress test dobutamine 06/2019 was negative for reversible ischemia. Most recent echocardiogram 06/2019 revealed an EF of 5055 percent, mild mitral regurgitation, mild tricuspid regurgitation. Chest xray no acute cardiopulmonary process. Laboratory reviewed, CBC unremarkable, troponin negative 3, COVID-19 PCR ne gative, sodium 135, potassium 4.6, BUN 9, serum creatinine 0.8, magnesium 2.0 Current home medications include Plavix 75 mg daily REVIEW OF SYSTEMS At the time of my exam: CONSTITUTIONAL: Denies fever or chills. CARDIOVASCULAR: Positive chest pain, positive shortness of breath Denies chest pain,orthopnea, PND or palpitations. RESPIRATORY: Denies cough. GASTROINTESTINAL: Denies abdominal pain, diarrhea, constipation, nausea or vomiting. MUSCULOSKELETAL: Denies myalgias. NEUROLOGIC: Denies numbness, tingling, headache or weakness. ENDOCRINE: Denies fatigue, weight change, polydipsia or polyurina. GENITOURINARY: Denies burning, hematuria or urgency with micturation. HEMATOLOGIC: Denies history of anemia or bleeding. PHYSICAL EXAMINATION Blood pressure 110/67, heart rate 64, afebrile, oxygen saturation is greater than 92% on room air CONSTITUTIONAL: No apparent distress. HEENT: Head is normocephalic. Pupils are equal, round. Sclerae anicteric. Mucous membranes of the mouth are moist. No JVD. No carotid bruit. CHEST EXAMINATION: Lungs are clear to auscultation. No chest wall tenderness is noted on palpation or with deep breathing. HEART EXAMINATION: Regular rate and rhythm. S1, S2 heard. No murmurs, gallops or rub. ABDOMEN: Soft, nontender. Positive bowel sounds. EXTREMITIES: 2+ peripheral pulses, no lower extremity edema and no calf tenderness. SKIN:warm, dry NEUROLOGIC EXAMINATION: Patient is awake, alert and oriented x3. ASSESSMENT Unstable Angina History of hypertension History of dyslipidemia Coronary artery disease s/p prior PCI ramus intermedius 2013 Chronic tobacco use PLAN -We recommend cardiac catheterization at this time, patient is agreeable -I have discussed the risks, benefits and alternative therapies for the above- mentioned procedure and for both sedation/analgesia as well as necessary blood product administration, if indicated, as they pertain to this patient. The patient has indicated understanding and acceptance of the risks and procedures discussed. Questions have been answered appropriately and he is agreeable to move forward with the above-stated procedure. -Obtain 2D echocardiogram and doppler study to assess cardiac structure and function. -Start metoprolol tartrate 25mg BID and Atorvastatin 80mg daily -Lipid Panel -Smoking cessation discussed and highly recommended. -Plan for cardiac catheterization today with Dr. Serna -Further recommendations based on clinical course Thank you kindly for this consultation. Nurse Practitioner note has been reviewed, I agree with a documented findings and plan of care. Patient was seen and examined. Past Medical History Past Medical History: Coronary Artery Disease (CAD), Hyperlipidemia, Hypertension, Myocardial Infarction ([place]) Last Myocardial Infarction Date:: 2013 History of Any Multi-Drug Resistant Organisms: None Reported Past Surgical History: Heart Catheterization With Stent Additional Past Surgical History / Comment(s): bilat knee scopes Past Anesthesia/Blood Transfusion Reactions: No Reported Reaction Date of Last Stent Placement:: 2013 Past Psychological History: No Psychological Hx Reported Smoking Status: Current every day smoker Past Alcohol Use History: None Reported Past Drug Use History: None Reported - Past Family History Mother Additional Family Medical History / Comment(s): bipolar, osteoparosis Father Family Medical History: Coronary Artery Disease (CAD), Rheumatoid Arthritis (RA) Sister(s) Additional Family Medical History / Comment(s): bipolar Brother(s) Family Medical History: Coronary Artery Disease (CAD) Additional Family Medical History / Comment(s): AICD placement Son(s) Additional Family Medical History / Comment(s): aspergers Daughter(s) Family Medical History: No Reported History Medications and Allergies Home Medications Medication Instructions Recorded Confirmed Type Clopidogrel [Plavix] 75 mg PO DIRECTED 10/10/21 10/10/21 History Naproxen Sodium [Aleve] 440 - 660 mg PO BID PRN 10/10/21 10/10/21 History Allergies Allergy/AdvReac Type Severity Reaction Status Date / Time citalopram hydrobromide Allergy Rash/Hives Verified 10/10/21 22:37 [From Celexa] Physical Exam Vitals: Vital Signs Temp Pulse Pulse Resp BP BP Pulse Ox 10/11/21 02:19 97.6 F 64 16 106/68 99 10/11/21 00:39 64 16 107/77 99 10/10/21 20:14 97.8 F 77 16 152/80 100 Intake and Output 10/10/21 10/11/21 10/11/21 22:59 06:59 14:59 Intake Total 0 Balance 0 Intake: Oral 0 Other: # Voids 1 Weight 124.738 kg 124.738 kg Results 10/10/21 20:35 10/10/21 20:35 Cardiac Enzymes 10/10/21 10/10/21 10/10/21 Range/Units 20:35 20:35 23:42 AST 26 (17-59) U/L Troponin I <0.012 <0.012 (0.000-0.034) ng/mL 10/11/21 Range/Units 02:22 AST (17-59) U/L Troponin I <0.012 (0.000-0.034) ng/mL Coagulation 10/10/21 Range/Units 20:35 PT 9.4 (9.0-12.0) sec APTT 25.2 (22.0-30.0) sec CBC 10/10/21 Range/Units 20:35 WBC 7.5 (3.8-10.6) k/uL RBC 5.24 (4.30-5.90) m/uL Hgb 16.4 (13.0-17.5) gm/dL Hct 46.4 (39.0-53.0) % Plt Count 252 (150-450) k/uL Comprehensive Metabolic Panel 10/10/21 Range/Units 20:35 Sodium 135 L (137-145) mmol/L Potassium 4.6 (3.5-5.1) mmol/L Chloride 104 (98-107) mmol/L Carbon Dioxide 23 (22-30) mmol/L BUN 9 (9-20) mg/dL Creatinine 0.87 (0.66-1.25) mg/dL Glucose 91 (74-99) mg/dL Calcium 9.3 (8.4-10.2) mg/dL AST 26 (17-59) U/L ALT 23 (4-49) U/L Alkaline Phosphatase 104 (38-126) U/L Total Protein 7.3 (6.3-8.2) g/dL Albumin 4.1 (3.5-5.0) g/dL Current Medications Generic Name Dose Route Start Last Admin Trade Name Freq PRN Reason Stop Dose Admin Aspirin 325 mg 10/11/21 09:00 Aspirin 325 Mg Tab PO DAILY GABE Morphine Sulfate 4 mg 10/10/21 22:16 10/11/21 00:42 Morphine Sulfate 4 Mg/Ml Syringe IV 4 mg Q4H PRN Administration Chest Pain Nitroglycerin 0.4 mg 10/10/21 22:16 Nitroglycerin Sl Tabs 0.4 Mg Tab SUBLINGUAL Q5M PRN Chest Pain Intake and Output 10/10/21 10/11/21 10/11/21 22:59 06:59 14:59 Intake Total 0 Balance 0 Intake: Oral 0 Other: # Voids 1 Weight 124.738 kg 124.738 kg 10/10/21 20:35 10/10/21 20:35
[2021-10-11] MEDS: METOPROLOL TARTRATE 25 MG TAB PO SCH ×2 (09:57→19:42)
[2021-10-11] MEDS ORDERED: VERAPAMIL 2.5 MG/ML 2 ML AMP ONE (10:01)
[2021-10-11] MEDS ORDERED: LIDOCAINE 1% INJ 10MG/ML (20 ML MDV) ONE (10:01)
[2021-10-11 10:10] LABS: Basophils # (A) 0.1 k/uL (0-0.2); Basophils % (A) 1 %; Eosinophils # (A) 0.3 k/uL (0-0.7); Eosinophils % (A) 4 %; HCT 47.7 % (39.0-53.0); HGB 16.6 gm/dL (13.0-17.5); Lymphocytes # (A) 3.2 k/uL (1.0-4.8); Lymphocytes % (A) 44 %; MCH 31.9 pg (25.0-35.0); MCHC 34.8 g/dL (31.0-37.0); MCV 91.7 fL (80.0-100.0); Mean Platelet Volume 6.6; Monocytes # (A) 0.5 k/uL (0-1.0); Monocytes % (A) 7 %; Neutrophils % (A) 42 %; Platelet Count 253 k/uL (150-450); RDW 13.2 % (11.5-15.5); WBC 7.3 k/uL (3.8-10.6)
[2021-10-11 10:24] LABS: Partial Thromboplastin Time 47.4 sec (22.0-30.0); Prothrombin Time 10.4 sec (9.0-12.0)
[2021-10-11] MEDS ORDERED: SODIUM CHLORIDE 0.9% 1,000 ML IV ONE (10:27)
[2021-10-11] MEDS: MIDAZOLAM 2 MG/2 ML VIAL IV ONE ×2 (10:34→10:37)
[2021-10-11] MEDS ORDERED: HEPARIN SODIUM 1,000 UN/ML (10ML VL) ONE (10:37)
[2021-10-11] MEDS ORDERED: LIDOCAINE 1% INJ 10MG/ML (20 ML MDV) SQ ONE (10:40)
[2021-10-11] MEDS: VERAPAMIL SYRINGE (5 MG/10 ML) INTRAARTER ONE ×2 (10:50→11:33)
[2021-10-11 10:58] LABS: LDL Cholesterol,Calculated 161.8 mg/dL (0.0-131.0); VLDL Calculation 15.86 mg/dL (5.00-40.00)
[2021-10-11] MEDS ORDERED: NITROGLYCERIN 1000MCG/10ML SYRINGE INTRACORON ONE (11:20)
[2021-10-11] MEDS ORDERED: IOPAMIDOL-370 100ML BTL INJ ONE ×2 (11:23→11:33)
--- NOTE | 2021-10-11 11:24 | P.EN ---
I came to see the patient and he was in cardiac cath
[2021-10-11] MEDS ORDERED: CLOPIDOGREL 75 MG TAB ONE (11:29)
[2021-10-11] MEDS ORDERED: CLOPIDOGREL 75 MG TAB PO ONE (11:32)
--- NOTE | 2021-10-11 13:36 | CC ---
CARDIAC CATHETERIZATION REPORT DATE OF SERVICE: 10/11/2021. PROCEDURE: 1. Left heart catheterization and coronary angiography. 2. PTCA and stenting of mid right coronary artery with a drug-eluting stent. PERFORMED BY: Dr. Garima Senra. Moderate conscious sedation time was 54 minutes. Patient was administered Versed. Oxygen saturation, hemodynamics and EKG were monitored closely. CLINICAL INFORMATION: Mr. Td Kidd is a 51-year-old gentleman with a history of CAD, smoking, hypertension, hypercholesterolemia. He has been taking only Plavix inconsistently, stopped aspirin, does not take any statins. Follows up with PCP. Has not seen Cardiology. In 2013 he had a PTCA and stenting of the ramus intermedius performed by Dr. Ubaldo Serna and since then he has not followed up with any permastone mechanic. He comes in with chest pain suggestive of angina. Troponins were negative. EKG was unremarkable. Given his symptoms and presentation and previous PCI, I recommended coronary angiography after due discussion regarding risks, benefits, and options. PROCEDURE NOTE: Under local anesthesia and strict aseptic precautions, a 6-[place] sheath was placed in the right radial artery. I used a micropuncture needle technique. Using a JR4 and JL3.5 catheters I performed coronary angiography. I used a pigtail catheter to check LV pressures. LV gram was not performed. Following the cardiac cath, I noted that he had a significant mid 90% lesion of the codominant RCA. I performed stenting of this with a drug-eluting stent and after this, the sheath was taken out and a TR band applied as per protocol. The patient tolerated procedure well without complication. The results were discussed with the patient and his family. He was advised to quit smoking and he will be on dual antiplatelet therapy and I will discharge him tomorrow if he remains stable. CARDIAC CATHETERIZATION FINDINGS: Left ventricular end-diastolic pressure was 12 mmHg without any gradient across aortic valve. CORONARY ANGIOGRAPHY FINDINGS: RIGHT CORONARY ARTERY: Technically a codominant vessel, has a lot of tortuosity in the proximal portion. In the midportion, at the origin of an acute marginal branch, there is a 90-95 percent tight stenosis after which the caliber improves and vessel runs distally. Gives off a small PDA and PLV, both of which supply a limited amount of myocardium. LEFT MAIN CORONARY ARTERY: Short patent vessel, free of significant disease that bifurcates into LAD, circumflex and ramus intermedius. Left main has mild narrowing in the proximal portion. LEFT ANTERIOR DESCENDING CORONARY ARTERY: Good caliber vessel extends along the anterior wall, supplies a sizable amount of myocardium. Gives off septal and diagonal branches. No significant disease. RAMUS INTERMEDIUS: This was stented in 2013, stented area is widely patent with good flow. It gives 2 branches, both of which supply a fair amount of myocardium. No significant disease. LEFT POSTERIOR CIRCUMFLEX CORONARY ARTERY: Technically a nondominant vessel, has minor irregularities. Distally has smaller branches. Mild disease. No significant obstruction. FINAL IMPRESSION: This patient has a codominant system, a 95% mid RCA stenosis, previously stented ramus is widely patent,LAD and circumflex have minor diffuse irregularities. Filling pressures are normal and there is no gradient. RECOMMENDATIONS: I recommended PCI of RCA and proceeded to perform this in the same setting. PCI PROCEDURE DETAILS: [facility] guide catheter was used to cannulate the right coronary artery. I used a run- through wire to cross the lesion. A 2.25 caliber 8 mm long NC Trek balloon was used to pre-dilate the lesion. I then deployed a 15 mm long 2.75 caliber Xience stent at 13 atmospheres. Patient had no significant symptoms but had EKG changes with inferior ST- segment elevation. Excellent angiographic result was achieved without complication. The sheath was taken out and TR band applied as per protocol and was sent to the room in stable condition. There was remarkable improvement in the flow noted. The results were discussed with the patient and . I expect he will be discharged tomorrow if he remains stable. MMODL / IJN: [id number] /
--- NOTE | 2021-10-11 17:00 | ECHOF ---
Referral Reason:LV function MEASUREMENTS -------- HEIGHT: 185.4 cm WEIGHT: 124.7 kg BP: RVIDd: 2.9 cm (< 3.3) IVSd: 1.5 cm (0.6 - 1.1) LVIDd: 4.4 cm (3.9 - 5.3) LVPWd: 1.5 cm (0.6 - 1.1) IVSs: 1.9 cm LVIDs: 2.9 cm LVPWs: 1.8 cm LA Diam: 3.4 cm (2.7 - 3.8) Ao Diam: 3.1 cm (2.0 - 3.7) AV Cusp: 1.9 cm (1.5 - 2.6) MV EXCURSION: 18.069 mm (> 18.000) MV EF SLOPE: 91 mm/s (70 - 150) EPSS: 2.1 cm MV E Chacorta: 0.85 m/s MV DecT: 147 ms MV A Chacorta: 0.58 m/s MV E/A Ratio: 1.46 RAP: 5.00 mmHg RVSP: 19.13 mmHg FINDINGS -------- Sinus rhythm. This was a technically difficult study with suboptimal views. The left ventricular size is normal. There is moderate concentric left ventricular hypertrophy. O verall left ventricular systolic function is normal with, an EF between 55 - 60 %. The right ventricle is normal in size. The left atrium is normal in size. The right atrium is normal in size. 2 ml of Lumason was utilized for enhancement of images. Interatrial and interventricular septum intact. The aortic valve is trileaflet, and appears structurally normal. No aortic stenosis or regurgitation. The mitral valve is normal. Trace tricuspid regurgitation present. The pulmonic valve is normal. The aortic root size is normal. IVC Not well visulized. There is no pericardial effusion. CONCLUSIONS -------- 1. The left ventricular size is normal. 2. There is moderate concentric left ventricular hypertrophy. 3. Overall left ventricular systolic function is normal with, an EF between 55 - 60 %. 4. 2 ml of Lumason was utilized for enhancement of images. 5. Trace tricuspid regurgitation present. 6. There is no pericardial effusion. CASE CONSULTANT: Clare Pretty RD
[2021-10-11] MEDS ORDERED: HYDROcodone/APAP 7.5-325MG 1 EACH TAB PO PRN (20:17)
[2021-10-11] MEDS: LIDOCAINE 5% PATCH TOPICAL SCH (20:40)
[2021-10-12] MEDS: SODIUM CHLORIDE 0.9% 1,000 ML in EMPTY BAG 1 BAG IV SCH ×2 (01:05→10:29)
[2021-10-12 02:02] VITALS: RESP 16
--- NOTE | 2021-10-12 05:27 | P.HPIM ---
History of Present Illness This is a pleasant 51 years old male with past medical history of coronary artery disease, status post stenting, hypertension and hyperlipidemia Patient presents because of chest pain, central, severe. Some mild tachypnea but no coughing. He is fully awake and oriented. No abdominal pain or vomiting. No urinary complaints. He smokes 1 pack per day, patient was counseled to quit and he agrees. He denies daily alcohol use or illicit tracts. Vitals unremarkable except for mild bradycardia. Labs are unremarkable including CBC, INR, BMP and liver enzymes. Serial troponins 3 are negative. Lipase is normal. Coronal virus not detected. EKG showed normal sinus rhythm at [address]-T changes Patient underwent cardiac cath and stent placement to the RCA. Patient feels better. Postoperative day #0. Patient feels no chest pain, no dyspnea he looks comfortable Past Medical History Past Medical History: Coronary Artery Disease (CAD), Hyperlipidemia, Hypertension, Myocardial Infarction ([place]) Last Myocardial Infarction Date:: 2013 History of Any Multi-Drug Resistant Organisms: None Reported Past Surgical History: Heart Catheterization With Stent Additional Past Surgical History / Comment(s): bilat knee scopes Past Anesthesia/Blood Transfusion Reactions: No Reported Reaction Date of Last Stent Placement:: 2013 Past Psychological History: No Psychological Hx Reported Smoking Status: Current every day smoker Past Alcohol Use History: None Reported Past Drug Use History: None Reported - Past Family History Mother Additional Family Medical History / Comment(s): bipolar, osteoparosis Father Family Medical History: Coronary Artery Disease (CAD), Rheumatoid Arthritis (RA) Sister(s) Additional Family Medical History / Comment(s): bipolar Brother(s) Family Medical History: Coronary Artery Disease (CAD) Additional Family Medical History / Comment(s): AICD placement Son(s) Additional Family Medical History / Comment(s): aspergers Daughter(s) Family Medical History: No Reported History Medications and Allergies Home Medications Medication Instructions Recorded Confirmed Type Clopidogrel [Plavix] 75 mg PO DAILY 10/10/21 10/11/21 History Naproxen Sodium [Aleve] 440 - 660 mg PO BID PRN 10/10/21 10/10/21 History Allergies Allergy/AdvReac Type Severity Reaction Status Date / Time citalopram hydrobromide Allergy Rash/Hives Verified 10/10/21 22:37 [From Celexa] Physical Exam Vitals: Vital Signs Temp Pulse Pulse Resp BP BP Pulse Ox 10/11/21 20:00 18 10/11/21 15:20 97.6 F 10/11/21 15:19 64 18 112/72 95 10/11/21 14:20 60 18 120/75 95 10/11/21 13:50 61 18 121/77 97 10/11/21 13:19 56 L 18 102/73 96 10/11/21 12:49 58 L 18 127/81 95 10/11/21 12:35 61 18 123/83 94 L 10/11/21 12:20 59 L 18 121/79 93 L 10/11/21 12:05 57 L 18 121/83 95 10/11/21 11:50 97.6 F 59 L 18 128/84 100 10/11/21 08:45 56 L 10/11/21 07:00 97.5 F L 56 L 18 110/67 97 10/11/21 02:19 97.6 F 64 16 106/68 99 10/11/21 00:39 64 16 107/77 99 Intake and Output 10/11/21 10/11/21 10/11/21 06:59 14:59 22:59 Intake Total 0 380 500 Balance 0 380 500 Intake: IV 200 Oral 0 180 500 Other: # Voids 1 1 Weight 124.738 kg Results CBC & Chem 7: 10/11/21 09:50 10/10/21 20:35 Labs: Abnormal Lab Results - Last 24 Hours (Table) 10/10/21 10/10/21 10/11/21 Range/Units 20:35 23:42 09:50 APTT 47.4 H (22.0-30.0) sec Sodium 135 L (137-145) mmol/L Cholesterol 221.00 H (0.00-200.00) mg/dL LDL Cholesterol, Calc 161.8 H (0.0-131.0) mg/dL Thrombosis Risk Factor Assmnt - Choose All That Apply Each Factor Represents 1 point: Age 41-60 years, Obesity (BMI >25) Thrombosis Risk Factor Assessment Total Risk Factor Score: 2 Thrombosis Risk Factor Assessment Level: Low Risk Assessment and Plan Assessment: Chest pain concerning for unstable angina, underwent cardiac cath , status post PCI of RCA History of coronary artery disease status post stenting Hypertension Hyperlipidemia Plan: This is a pleasant 51 years old male who presents with unstable angina, status post PCI of RCA Continue with dual antiplatelet therapy Cartilage team following the case closely Labs and medication were reviewed.. Continue same treatment. Continue with symptomatic treatment. Resume home medication. Monitor lytes and vitals. DVT and GI prophylaxis. Further recommendations depends on the clinical course of the patient DVT prophylaxis: heparin GI Prophylaxis: Pepcid
[2021-10-12] MEDS ORDERED: HEPARIN SODIUM,PORCINE 10,000 UNIT in SODIUM CHLORIDE 0.9% 1,000 ML IRRIGATION PRN (07:00)
[2021-10-12] MEDS ORDERED: HEPARIN SODIUM,PORCINE 2,500 UNIT in SODIUM CHLORIDE 0.9% 250 ML IRRIGATION PRN (07:00)
[2021-10-12 07:10] LABS: African American GFR (CKD) >90 (>60 ml/min/1.73 sqM); Anion Gap 5 mmol/L; Blood Urea Nitrogen 14 mg/dL (9-20); Calcium 8.7 mg/dL (8.4-10.2); Carbon Dioxide 24 mmol/L (22-30); Chloride 106 mmol/L (98-107); Glucose 85 mg/dL (74-99); Non-African American GFR(CKD) >90 (>60 ml/min/1.73 sqM); Potassium 4.7 mmol/L (3.5-5.1); Sodium 135 mmol/L (137-145)
[2021-10-12 08:15] VITALS: BP 104/65; PULSE 63; TEMP 97.6
[2021-10-12] MEDS: METOPROLOL TARTRATE 25 MG TAB PO SCH (08:44)
[2021-10-12] MEDS: ASPIRIN 81 MG PO SCH (08:44)
[2021-10-12] MEDS ORDERED: CLOPIDOGREL 75 MG TAB PO SCH (09:00)
[2021-10-12] MEDS ORDERED: NICOTINE 14MG/24HR PATCH TRANSDERM SCH (09:00)
[2021-10-12 09:13] LABS: Basophils # (A) 0.06 X 10*3/uL (0.00-0.10); Basophils % (A) 0.7 %; Eosinophils # (A) 0.31 X 10*3/uL (0.04-0.35); Eosinophils % (A) 3.6 %; HCT 42.2 % (39.6-50.0); HGB 14.2 g/dL (13.0-17.0); Lymphocytes # (A) 3.06 X 10*3/uL (0.90-5.00); MCH 30.4 pg (27.0-32.0); MCHC 33.6 g/dL (32.0-37.0); MCV 90.4 fL (80.0-97.0); Mean Platelet Volume 9.7 fL (9.5-12.2); Monocytes # (A) 0.77 X 10*3/uL (0.20-1.00); Neutrophils # (A) 4.28 X 10*3/uL (1.80-7.70); Neutrophils % (A) 50.3 %; Platelet Count 235 X 10*3/uL (140-440); RBC 4.67 X 10*6/uL (4.40-5.60); RDW 12.7 % (11.5-14.5); WBC 8.51 X 10*3/uL (4.50-10.00)
[2021-10-12 09:21] LABS: INR 0.93 (0.90-1.11); Prothrombin Time 10.3 sec (9.9-11.9)
[2021-10-12] MEDS: LIDOCAINE 5% PATCH TOPICAL SCH (10:28)
--- NOTE | 2021-10-12 11:49 | P.PN ---
Subjective This is a 51 year old male with a past medical history of coronary artery disease s/p PCI proximal ramus intermedius in 02/2014, history of hypertension and dyslipidemia, chronic nicotine dependence. Patient presents to the emergency department with complaints of exertional chest pain, becoming more frequent. Patient underwent cardiac catheterization with Dr. Serna on 10/11/2021 which revealed 95% stenosis in the mid RCA, previous stented ramus is mildly patent, left main has mild narrowing in the proximal portion, circumflex had minor diffuse irregularities. Patient underwent PCI to the mid RCA. Echocardiogram revealed EF 5560 percent, no significant wall motion abnormalities, moderate concentric LVH. Patient seen and examined at bedside, no acute distress. Denies chest pain or shortness of breath. EKG this morning reviewed with no acute findings. Labs reviewed,sodium 135, potassium 4.3, BUN 14, serum crit 0.8, WBC 8.5, hemoglobin 14.2, platelets 235. He's currently maintained on aspirin 81 mg daily, Plavix and 5 mg daily, atorvastatin 80 mg daily, metoprolol tartrate 25 mg twice a day. PHYSICAL EXAMINATION Blood pressure 104/65, heart rate 63, afebrile, oxygen saturations greater than 92% on room air CONSTITUTIONAL: No apparent distress. HEENT: Neck supple. No JVD. CHEST EXAMINATION: Lungs are clear to auscultation. HEART EXAMINATION: Regular rate and rhythm. S1, S2 heard. No murmurs, gallops or rub. ABDOMEN: Soft, nontender. Positive bowel sounds. EXTREMITIES: 2+ peripheral pulses, no lower extremity edema and no calf tenderness. SKIN: Right radial cath site clean dry intact , good 2+ pulses, no hematoma. NEUROLOGIC EXAMINATION: Patient is awake, alert and oriented x3. ASSESSMENT Unstable Angina s/p PCI to mid RCA 10/11/21 History of hypertension History of dyslipidemia Coronary artery disease s/p prior PCI ramus intermedius 2013 Chronic tobacco use PLAN -Continue dual antiplatelet therapy with aspirin and Plavix -Continue metoprolol tartrate 25mg BID and Atorvastatin 80mg daily -Smoking cessation discussed and highly recommended. -From a cardiology perspective, patient can be discharged home today. -Follow with Dr. Serna 10/15/21 at 2:00PM. Nurse Practitioner note has been reviewed, I agree with a documented findings and plan of care. Patient was seen and examined. Objective - Vital Signs Vital signs: Vital Signs Temp 97.6 F 10/12/21 07:23 Pulse 63 10/12/21 07:23 Resp 16 10/12/21 07:23 BP 104/65 10/12/21 07:23 Pulse Ox 96 10/12/21 07:23 Intake & Output 10/11/21 10/12/21 10/12/21 18:59 06:59 18:59 Intake Total 880 525 180 Balance 880 525 180 Intake: IV 200 Oral 680 525 180 Other: # Voids 1 1 - Labs CBC & Chem 7: 10/12/21 06:13 10/12/21 06:13 Labs: Abnormal Lab Results - Last 24 Hours (Table) 10/12/21 Range/Units 06:13 Sodium 135 L (137-145) mmol/L
[2021-10-12] MEDS ORDERED: ATORVASTATIN 80 MG TAB PO SCH (21:00)
--- NOTE | 2021-10-16 12:11 | P.DS ---
Providers Date of admission: 10/10/21 22:11 Expected date of discharge: 10/12/21 Attending physician: Cammy Thorpe MD Consults: 10/10/21 22:17 Consult Physician Urgent Consulting Provider: [facility] Consult Reason/Comments: Chest Pain Do you want consulting provider notified?: Yes Primary care physician: Zunilda Martinez [facility] Hospital Course: Final diagnosis Chest pain concerning for unstable angina, underwent cardiac cath , status post PCI of RCA History of coronary artery disease status post stenting Hypertension Hyperlipidemia DVT prophylaxis GI Prophylaxis Full code Discharge disposition Patient is being discharged in a stable condition with guarded prognosis to home. Patient will follow-up with Dr. Mauro in the outpatient setting upon discharge. Patient is to follow up with cardiology Dr. Serna outpatient. Total time taken is greater than 35 minutes. Hospital course This is a pleasant 51 years old male with past medical history of coronary michael ry disease, status post stenting, hypertension and hyperlipidemia Patient presents because of chest pain, central, severe. Some mild tachypnea but no coughing. He is fully awake and oriented. No abdominal pain or vomiting. No urinary complaints. He smokes 1 pack per day, patient was counseled to quit and he agrees. He denies daily alcohol use or illicit tracts. Vitals unremarkable except for mild bradycardia. Labs are unremarkable including CBC, INR, BMP and liver enzymes. Serial troponins 3 are negative. Lipase is normal. Coronal virus not detected. EKG showed normal sinus rhythm at [address]-T changes Patient underwent cardiac cath and stent placement to the RCA. Patient feels better. Postoperative day #0. Patient feels no chest pain, no dyspnea he looks comfortable 10/15/2021 Patient is seen this morning after cardiac catheterization and has received stents. Patient has been cleared by cardiology and will follow up with DR. Serna outpatient. Patient to continue current medications as prescribed below. Currently no reports of chest pain, palpitations or worsening shortness of breath. Patient is afebrile. No reports of nausea or vomiting and tolerating diet. Patient will be discharged today. Physical exam: GENERAL: The patient is alert and oriented x3, Well developed, well nourished. HEENT: Pupils are round and equally reacting to light. EOMI. No scleral icterus. No conjunctival pallor. Normocephalic, atraumatic. No pharyngeal erythema. No thyromegaly. CARDIOVASCULAR: S1 and S2 present. No murmurs, rubs, or gallops. PULMONARY: breath soulnds clear to auscultation with no wheezing or rhonchi noted. ABDOMEN: Soft, nontender, nondistended, normoactive bowel sounds. No palpable organomegaly. MUSCULOSKELETAL: No joint swelling or deformity. EXTREMITIES: No cyanosis, clubbing, or pedal edema. NEUROLOGICAL: Gross neurological examination did not reveal any focal deficits. SKIN: No rashes. Please refer to medication reconciliation sheet for a list of medications. Patient Condition at Discharge: Stable Plan - Discharge Summary Discharge Rx Participant: Yes New Discharge Prescriptions: New Atorvastatin [Lipitor] 80 mg PO HS 30 Days #30 tab Nitroglycerin Sl Tabs [Nitrostat] 0.4 mg SUBLINGUAL Q5M PRN #25 tab PRN Reason: Chest Pain Nicotine 14Mg/24Hr Patch [Habitrol] 1 patch TRANSDERM DAILY #14 patch Lidocaine 5% Patch [Lidoderm 5% Patch] 1 patch TOPICAL DAILY #20 patch Aspirin 81 mg PO DAILY 30 Days #30 tab Metoprolol Tartrate [Lopressor] 25 mg PO BID 30 Days #60 tab Continue Naproxen Sodium [Aleve] 440 - 660 mg PO BID PRN PRN Reason: Pain Clopidogrel [Plavix] 75 mg PO DAILY 30 Days #30 tab Discharge Medication List Naproxen Sodium [Aleve] 440 - 660 mg PO BID PRN 10/10/21 [History] Aspirin 81 mg PO DAILY 30 Days #30 tab 10/12/21 [Rx] Atorvastatin [Lipitor] 80 mg PO HS 30 Days #30 tab 10/12/21 [Rx] Clopidogrel [Plavix] 75 mg PO DAILY 30 Days #30 tab 10/12/21 [Rx] Lidocaine 5% Patch [Lidoderm 5% Patch] 1 patch TOPICAL DAILY #20 patch 10/12/21 [Rx] Metoprolol Tartrate [Lopressor] 25 mg PO BID 30 Days #60 tab 10/12/21 [Rx] Nicotine 14Mg/24Hr Patch [Habitrol] 1 patch TRANSDERM DAILY #14 patch 10/12/21 [Rx] Nitroglycerin Sl Tabs [Nitrostat] 0.4 mg SUBLINGUAL Q5M PRN #25 tab 10/12/21 [Rx] Follow up Appointment(s)/Referral(s): Malik Serna MD [STAFF PHYSICIAN] - 10/15/21 2:00 pm Juan Mauro MD [Primary Care Provider] - 1-2 days Patient Instructions/Handouts: Left Heart Catheterization (DC), After Radial Heart Catheterization (GEN) Activity/Diet/Wound Care/Special Instructions: Activity Limited until follow-up Follow-up primary care provider on discharge follow-up cardiology as discussed and scheduled Continue taking medications as prescribed Continue heart healthy diet Discharge/Stand Alone Forms: Work/School Release, Work/School Release / Restrict Discharge Disposition: HOME SELF-CARE
== END 2021-10-12 13:16 | disposition home or self-care (01) ==
LOC: EC 20:11 → 6NMEDSUR 22:11
PROVIDERS: ADMIT Internal Medicine; ATTEND Internal Medicine
DX: I25.110 Atherosclerotic heart disease of native coronary artery with unstable angina pectoris (principal); I11.9 Hypertensive heart disease without heart failure; F17.210 Nicotine dependence, cigarettes, uncomplicated; Q25.0 Patent ductus arteriosus; E78.5 Hyperlipidemia, unspecified; Z20.822 Contact with and (suspected) exposure to COVID-19; E66.9 Obesity, unspecified; Z68.36 Body mass index [BMI] 36.0-36.9, adult; I25.2 Old myocardial infarction; Z79.82 Long term (current) use of aspirin; Z79.899 Other long term (current) drug therapy; Z79.02 Long term (current) use of antithrombotics/antiplatelets; Z88.8 Allergy status to other drugs, medicaments and biological substances; Z71.6 Tobacco abuse counseling; Z82.0 Family history of epilepsy and other diseases of the nervous system; Z82.49 Family history of ischemic heart disease and other diseases of the circulatory system; Z82.62 Family history of osteoporosis; Z81.8 Family history of other mental and behavioral disorders
CPT/HCPCS: 99285; 96376 ×2; 96365; 96375; 36415; 93005; 93306; 93458; 80061; 80053; 80048; 83690; 83735; 84484 ×2; 85025 ×3; 85610 ×3; 85730 ×2; 87635; 71046; G0378 ×3; C9600; C1887; C1894; C1725; C1769 ×2; C1874; S4990; J2250; J2270 ×2; J2405; J2001; J1644 ×3; Q9950; Q9967

== ENCOUNTER → 2022-01-13 | Outpatient (CLI) | payer BC ==
--- NOTE | 2022-01-14 08:06 | MR ---
EXAMINATION TYPE: MR knee LT wo con DATE OF EXAM: 01/13/2022 COMPARISON: Outside left knee x-ray December 22, 2021 HISTORY: Inner and outer left knee pain, painful kneecap, locking and swelling for a month TECHNIQUE: Multiplanar, multisequence imaging of the left knee is performed without IV contrast. FINDINGS: MEDIAL MENISCUS: Anterior and posterior horns are intact without tear. LATERAL MENISCUS: Areas of increased signal and irregularity anterior horn lateral meniscus with more prominent abnormal signal deeper aspect extending to articular surface extending through the central body. CRUCIATE LIGAMENTS: The anterior and posterior cruciate ligaments are intact and unremarkable. COLLATERAL LIGAMENTS: The medial collateral ligament and lateral collateral ligament complex are inta ct and unremarkable. EXTENSOR MECHANISM: Visualized quadriceps and patellar tendons are intact. EFFUSION: Small suprapatellar joint effusion extends laterally. POPLITEAL CYST: No popliteal/flores cyst. TRICOMPARTMENT SPACES: Superior patellofemoral compartment joint space loss and spurring. Mild narrow ing medial and lateral tibiofemoral compartments with moderate to severe spurring. CARTILAGE: Significant chondromalacia patella with areas of full-thickness cartilaginous loss along p osterior reactive subchondral cystic change involving the inferior patellar pole. Lateral femoral con dyle BONE MARROW SIGNAL: No focal abnormal marrow signal is appreciated. OTHER: No additional significant abnormality is appreciated. IMPRESSION: 1. Advanced patellofemoral joint arthropathy as detailed above. 2. Tearing of the lateral meniscus involving anterior horn and central body along the deeper aspects.
== END | disposition home or self-care (01) ==
LOC: RADMRIMAIN 12:47
PROVIDERS: ATTEND Orthopaedic Surgery
DX: M17.12 Unilateral primary osteoarthritis, left knee (principal); M23.342 Other meniscus derangements, anterior horn of lateral meniscus, left knee

== ENCOUNTER 2023-04-17 13:52 | Observation (INO) | payer BC ==
[2023-04-17] MEDS ORDERED: NITROGLYCERIN OINT 1 INCH/GM PACKET TOPICAL STA (15:02)
[2023-04-17] MEDS ORDERED: ASPIRIN 81 MG PO STA (15:02)
--- NOTE | 2023-04-17 15:04 | ED ---
General Adult HPI - General Chief complaint: Chest Pain Stated complaint: Chest pain Time Seen by Provider: 04/17/23 14:45 Source: patient, family, RN notes reviewed Mode of arrival: ambulatory Limitations: no limitations - History of Present Illness Initial comments: Patient is a pleasant 53-year-old male presenting to the emergency department with concerns with chest discomfort. Onset of symptoms was around 24 hours ago. Symptoms are somewhat worse with exertion, mild at this time. Discomfort feels like pressure or ache. Patient does have history of similar symptoms previously associated with cardiac problems and stenting. Patient does not have a history of shoulder discomfort however. Patient did feel sweaty yesterday. No nausea. No dyspnea. - Related Data Home Medications Medication Instructions Recorded Confirmed Naproxen Sodium [Aleve] 440 - 660 mg PO BID PRN 10/10/21 10/10/21 Previous Rx's Medication Instructions Recorded Aspirin 81 mg PO DAILY 30 Days #30 tab 10/12/21 Atorvastatin [Lipitor] 80 mg PO HS 30 Days #30 tab 10/12/21 Clopidogrel [Plavix] 75 mg PO DAILY 30 Days #30 tab 10/12/21 Lidocaine 5% Patch [Lidoderm 5% 1 patch TOPICAL DAILY #20 patch 10/12/21 Patch] Metoprolol Tartrate [Lopressor] 25 mg PO BID 30 Days #60 tab 10/12/21 Nicotine 14Mg/24Hr Patch [Habitrol] 1 patch TRANSDERM DAILY #14 patch 10/12/21 Nitroglycerin Sl Tabs [Nitrostat] 0.4 mg SUBLINGUAL Q5M PRN #25 tab 10/12/21 Allergies Allergy/AdvReac Type Severity Reaction Status Date / Time citalopram hydrobromide Allergy Rash/Hives Verified 04/17/23 14:08 [From [email or web address]] Review of Systems ROS Statement: Those systems with pertinent positive or pertinent negative responses have been documented in the HPI. ROS Other: All systems not noted in ROS Statement are negative. Constitutional: Denies: fever Eyes: Denies: eye pain ENT: Denies: ear pain Respiratory: Denies: dyspnea Cardiovascular: Reports: as per HPI, chest pain Endocrine: Denies: fatigue Gastrointestinal: Denies: abdominal pain Genitourinary: Denies: dysuria Musculoskeletal: Reports: as per HPI. Denies: back pain Skin: Denies: rash Neurological: Denies: weakness Past Medical History Past Medical History: Coronary Artery Disease (CAD), Hyperlipidemia, Hypertension, Myocardial Infarction (PA) Last Myocardial Infarction Date:: 2013 History of Any Multi-Drug Resistant Organisms: None Reported Past Surgical History: Heart Catheterization With Stent Additional Past Surgical History / Comment(s): bilat knee scopes Past Anesthesia/Blood Transfusion Reactions: No Reported Reaction Date of Last Stent Placement:: 2013 Past Psychological History: No Psychological Hx Reported Smoking Status: Current every day smoker Past Alcohol Use History: None Reported Past Drug Use History: None Reported - Past Family History Mother Additional Family Medical History / Comment(s): bipolar, osteoparosis Father Family Medical History: Coronary Artery Disease (CAD), Rheumatoid Arthritis (RA) Sister(s) Additional Family Medical History / Comment(s): bipolar Brother(s) Family Medical History: Coronary Artery Disease (CAD) Additional Family Medical History / Comment(s): AICD placement Son(s) Additional Family Medical History / Comment(s): aspergers Daughter(s) Family Medical History: No Reported History General Exam Limitations: no limitations General appearance: alert, in no apparent distress Head exam: Present: atraumatic Eye exam: Present: normal appearance Neck exam: Present: normal inspection Respiratory exam: Present: normal lung sounds bilaterally. Absent: chest wall tenderness Cardiovascular Exam: Present: regular rate, normal rhythm Expanded Peripheral pulses: 2+: Radial (R), Radial (L), Dorsalis Pedis (R), Dorsalis Pedis (L) GI/Abdominal exam: Present: soft. Absent: tenderness Extremities exam: Present: normal inspection. Absent: pedal edema, calf tenderness Neurological exam: Present: alert Psychiatric exam: Present: normal affect, normal mood Skin exam: Present: normal color Course Vital Signs 04/17/23 14:04 Temperature 97.6 F Pulse Rate 77 Respiratory 18 Rate Blood Pressure 135/84 O2 Sat by Pulse 97 Oximetry EKG Findings - EKG Results: EKG: interpreted by ERMD, sinus rhythm, normal axis, normal QRS, normal ST/T Medical Decision Making - Medical Decision Making Was pt. sent in by a medical professional or institution (, PA, [employer]ERSON [employer], urgent care, hospital, or senior care...) When possible be specific @ -No Did you speak to anyone other than the patient for history (EMS, parent, family, police, friend...)? What history was obtained from this source @ -Family is present to help confirm cardiac history Did you review nursing and triage notes (agree or disagree)? Why? @ -I reviewed and agree with nursing and triage notes Were old charts reviewed (outside hosp., previous admission, EMS record, old EKG, old radiological studies, urgent care reports/EKG's, senior care records)? Report findings @ -No old charts were reviewed Differential Diagnosis (chest pain, altered mental status, abdominal pain women, abdominal pain men, vaginal bleeding, weakness, fever, dyspnea, syncope, headache, dizziness, GI bleed, back pain, seizure, CVA, palpatations, mental health)? @ -Differential Chest Pain: Stable Angina, Unstable Angina, STEMI, NSTEMI Aortic Dissection, Pneumothorax, Musculoskeletal, Esophageal Spasm GERD, Cholecystitis, Pancreatitis, Zoster, this is not meant to be an all-inclusive list. EKG interpreted by me (3pts min.). @ -As above X-rays interpreted by me (1pt min.). @ -Chest x-ray shows no acute process CT interpreted by me (1pt min.). @ -None done U/S interpreted by me (1pt. min.). @ -None done What testing was considered but not performed or refused? (CT, X-rays, U/S, labs)? Why? @ -None What meds were considered but not given or refused? Why? @ -None Did you discuss the management of the patient with other professionals (professionals i.e. , PA, [employer]ERSON [employer], lab, RT, psych nurse, social welfare research worker, planting machine operator, teacher, ecological technical officer, catalytic case operator)? Give summary @ -Case was discussed with practitioner Yumiko Romero, covering for Dr. Denny, who will admit covering for Dr. Nye Was smoking cessation discussed for >3mins.? @ -No Was critical care preformed (if so, how long)? @ -No Were there social determinants of health that impacted care today? How? (Homelessness, low income, unemployed, alcoholism, drug addiction, transportation, low edu. Level, literacy, decrease access to med. care, fci, rehab)? @ -No Was there de-escalation of care discussed even if they declined (Discuss DNR or withdrawal of care, Hospice)? DNR status @ -No What co-morbidities impacted this encounter? (DM, HTN, Smoking, COPD, CAD, Cancer, CVA, ARF, Chemo, Hep., AIDS, mental health diagnosis, sleep apnea, morbid obesity)? @ -None Was patient admitted / discharged? Hospital course, mention meds given and route, prescriptions, significant lab abnormalities, going to OR and other pertinent info. @ -Patient will be admitted and further evaluated. Patient revaluated and updated. Undiagnosed new problem with uncertain prognosis? @ -No Drug Therapy requiring intensive monitoring for toxicity (Heparin, Nitro, Insulin, Cardizem)? @ -No Were any procedures done? @ -No Diagnosis/symptom? @ -Chest pain Acute, or Chronic, or Acute on Chronic? @ -Acute Uncomplicated (without systemic symptoms) or Complicated (systemic symptoms)? @ -default Side effects of treatment? @ -No Exacerbation, Progression, or Severe Exacerbation? @ -No Poses a threat to life or bodily function? How? (Chest pain, USA, PA, pneumonia, PE, COPD, DKA, ARF, appy, cholecystitis, CVA, Diverticulitis, Homicidal, Suicidal, threat to staff... and all critical care pts) @ -No - Lab Data Result diagrams: 04/17/23 15:08 04/17/23 15:08 Lab Results 04/17/23 04/17/23 04/17/23 Range/Units 15:08 15:08 15:08 WBC 7.2 (3.8-10.6) k/uL RBC 4.81 (4.30-5.90) m/uL Hgb 15.0 (13.0-17.5) gm/dL Hct 44.7 (39.0-53.0) % MCV 93.0 (80.0-100.0) fL MCH 31.1 (25.0-35.0) pg MCHC 33.5 (31.0-37.0) g/dL RDW 12.7 (11.5-15.5) % Plt Count 301 (150-450) k/uL MPV 6.8 Neutrophils % 54 % Lymphocytes % 33 % Monocytes % 7 % Eosinophils % 4 % Basophils % 1 % Neutrophils # 3.9 (1.3-7.7) k/uL Lymphocytes # 2.4 (1.0-4.8) k/uL Monocytes # 0.5 (0-1.0) k/uL Eosinophils # 0.3 (0-0.7) k/uL Basophils # 0.0 (0-0.2) k/uL PT 9.4 (9.0-12.0) sec INR 0.9 (<1.2) APTT 25.3 (22.0-30.0) sec D-Dimer 0.40 (<0.60) mg/L FEU Sodium 136 L (137-145) mmol/L Potassium 4.7 (3.5-5.1) mmol/L Chloride 106 (98-107) mmol/L Carbon Dioxide 21 L (22-30) mmol/L Anion Gap 9 mmol/L BUN 11 (9-20) mg/dL Creatinine 0.70 (0.66-1.25) mg/dL Est GFR (CKD-EPI)AfAm >90 (>60 ml/min/1.73 sqM) Est GFR (CKD-EPI)NonAf >90 (>60 ml/min/1.73 sqM) Glucose 94 (74-99) mg/dL Calcium 8.7 (8.4-10.2) mg/dL Magnesium 2.2 (1.6-2.3) mg/dL Total Bilirubin 0.5 (0.2-1.3) mg/dL AST 25 (17-59) U/L ALT 20 (4-49) U/L Alkaline Phosphatase 84 (38-126) U/L Troponin I (0.000-0.034) ng/mL Total Protein 7.1 (6.3-8.2) g/dL Albumin 4.1 (3.5-5.0) g/dL 04/17/23 Range/Units 15:08 WBC (3.8-10.6) k/uL RBC (4.30-5.90) m/uL Hgb (13.0-17.5) gm/dL Hct (39.0-53.0) % MCV (80.0-100.0) fL MCH (25.0-35.0) pg MCHC (31.0-37.0) g/dL RDW (11.5-15.5) % Plt Count (150-450) k/uL MPV Neutrophils % % Lymphocytes % % Monocytes % % Eosinophils % % Basophils % % Neutrophils # (1.3-7.7) k/uL Lymphocytes # (1.0-4.8) k/uL Monocytes # (0-1.0) k/uL Eosinophils # (0-0.7) k/uL Basophils # (0-0.2) k/uL PT (9.0-12.0) sec INR (<1.2) APTT (22.0-30.0) sec D-Dimer (<0.60) mg/L FEU Sodium (137-145) mmol/L Potassium (3.5-5.1) mmol/L Chloride (98-107) mmol/L Carbon Dioxide (22-30) mmol/L Anion Gap mmol/L BUN (9-20) mg/dL Creatinine (0.66-1.25) mg/dL Est GFR (CKD-EPI)AfAm (>60 ml/min/1.73 sqM) Est GFR (CKD-EPI)NonAf (>60 ml/min/1.73 sqM) Glucose (74-99) mg/dL Calcium (8.4-10.2) mg/dL Magnesium (1.6-2.3) mg/dL Total Bilirubin (0.2-1.3) mg/dL AST (17-59) U/L ALT (4-49) U/L Alkaline Phosphatase (38-126) U/L Troponin I <0.012 (0.000-0.034) ng/mL Total Protein (6.3-8.2) g/dL Albumin (3.5-5.0) g/dL Disposition Clinical Impression: Chest pain Disposition: ADMITTED IP TO THIS HOSP Is patient prescribed a controlled substance at d/c from ED?: No Referrals: Juan Mauro MD [Primary Care Provider] - 1-2 days Time of Disposition: 16:27
[2023-04-17 15:19] LABS: Basophils % (A) 1 %; Eosinophils # (A) 0.3 k/uL (0-0.7); Eosinophils % (A) 4 %; HCT 44.7 % (39.0-53.0); Lymphocytes # (A) 2.4 k/uL (1.0-4.8); Lymphocytes % (A) 33 %; MCH 31.1 pg (25.0-35.0); MCHC 33.5 g/dL (31.0-37.0); Mean Platelet Volume 6.8; Monocytes # (A) 0.5 k/uL (0-1.0); Monocytes % (A) 7 %; Neutrophils # (A) 3.9 k/uL (1.3-7.7); Neutrophils % (A) 54 %; Platelet Count 301 k/uL (150-450); RBC 4.81 m/uL (4.30-5.90); RDW 12.7 % (11.5-15.5); WBC 7.2 k/uL (3.8-10.6)
--- NOTE | 2023-04-17 15:23 | XR ---
EXAMINATION TYPE: XR chest 2V DATE OF EXAM: 04/17/2023 COMPARISON: NONE TECHNIQUE: PA and lateral views submitted. HISTORY: Chest pain FINDINGS: The lungs are clear and there is no pneumothorax, pleural effusion, or focal pneumonia. Heart size normal and no overt failure. Osseous structures demonstrate hypertrophic and degenerative changes of the spine. IMPRESSION: 1. No acute process.
[2023-04-17 15:38] LABS: INR 0.9 (<1.2); Partial Thromboplastin Time 25.3 sec (22.0-30.0); Prothrombin Time 9.4 sec (9.0-12.0)
[2023-04-17 15:39] LABS: ALT 20 U/L (4-49); AST 25 U/L (17-59); African American GFR (CKD) >90 (>60 ml/min/1.73 sqM); Albumin 4.1 g/dL (3.5-5.0); Alkaline Phosphatase 84 U/L (38-126); Anion Gap 9 mmol/L; Blood Urea Nitrogen 11 mg/dL (9-20); Calcium 8.7 mg/dL (8.4-10.2); Carbon Dioxide 21 mmol/L (22-30); Chloride 106 mmol/L (98-107); Glucose 94 mg/dL (74-99); Magnesium 2.2 mg/dL (1.6-2.3); Non-African American GFR(CKD) >90 (>60 ml/min/1.73 sqM); Potassium 4.7 mmol/L (3.5-5.1); Sodium 136 mmol/L (137-145); Total Bilirubin 0.5 mg/dL (0.2-1.3); Total Protein 7.1 g/dL (6.3-8.2)
[2023-04-17] MEDS ORDERED: NITROGLYCERIN SL TABS 0.4 MG TAB SUBLINGUAL PRN (16:28)
[2023-04-17] MEDS ORDERED: ALPRAZolam 0.25 MG TAB PO PRN (19:43)
[2023-04-17] MEDS ORDERED: TEMAZEPAM 15 MG CAP PO PRN (19:43)
[2023-04-17] MEDS: NICOTINE 14MG/24HR PATCH TRANSDERM SCH (20:01)
[2023-04-17] MEDS: ATORVASTATIN 20 MG TAB PO SCH (20:01)
[2023-04-17] MEDS: NITROGLYCERIN OINT 1 INCH/GM PACKET TOPICAL SCH ×2 (20:57→23:06)
[2023-04-17] MEDS ORDERED: HYDROcodone/APAP 5-325MG 1 EACH TAB PO PRN (21:01)
[2023-04-17] MEDS ORDERED: ACETAMINOPHEN TAB 325 MG TAB PO PRN (21:01)
--- NOTE | 2023-04-17 22:35 | HP ---
HISTORY AND PHYSICAL CHIEF COMPLAINT: Chest pain. HISTORY OF PRESENT ILLNESS: This is a 53-year-old gentleman with a past medical history of CAD stent, was complaining of pain mainly in the left arm, left shoulder. The patient also had some pain in the left anterior part of chest and left back also. The patient also had some profuse sweating and the pain started when the patient is resting. The patient came to [facility]. Initial evaluation negative. The patient will be closely monitored. There is no history of any fever, rigors, or chills. PAST MEDICAL HISTORY: Reviewed include CAD stent. Rest of the history and rest of the chart is also reviewed. History of myocardial infarction. HOME MEDICATIONS: None. ALLERGIES: Celexa. FAMILY HISTORY: History of CAD, rheumatoid arthritis, bipolar, osteoporosis. SOCIAL HISTORY: History of smoking, continued ongoing. REVIEW OF SYSTEMS: A 14-point review is negative except as mentioned earlier. PHYSICAL EXAMINATION: VITAL SIGNS: Pulse is 71, blood pressure 115/81, respirations 18. HEENT: Conjunctivae normal. NECK: No jugular venous distention. CARDIOVASCULAR: S1, S2 muffled. RESPIRATIONS: Clear to auscultation. ABDOMEN: Soft, obese, nontender. LEGS: No edema. NERVOUS SYSTEM: No focal deficits. SKIN: No ulcer, rash, bleeding. JOINTS: No active deforming arthropathy. LABORATORY DATA: Reviewed. ASSESSMENT: 1. Chest pain, possible unstable angina. 2. Coronary artery disease stent. 3. History of myocardial infarction. 4. Hypertension. 5. Hyperlipidemia. 6. Multiple medical issues. RECOMMENDATIONS: This is a 53-year-old gentleman, who presented with multiple complex medical issues, we will monitor the patient closely. I recommend antiplatelet agents. Unstable angina protocol. Cardiology consultation. N.p.o. past midnight and continue to monitor. We will also initiate Lipitor. Also smoking cessation has been advised. Prognosis guarded. Further recommendations to follow. MMODL / IJN: [id number] /
[2023-04-18] MEDS: NITROGLYCERIN OINT 1 INCH/GM PACKET TOPICAL SCH ×2 (05:18→14:35)
[2023-04-18 07:11] LABS: African American GFR (CKD) >90 (>60 ml/min/1.73 sqM); Amylase 45 U/L (30-110); Anion Gap 7 mmol/L; Blood Urea Nitrogen 12 mg/dL (9-20); Calcium 8.6 mg/dL (8.4-10.2); Carbon Dioxide 25 mmol/L (22-30); Chloride 105 mmol/L (98-107); Glucose 93 mg/dL (74-99); Non-African American GFR(CKD) >90 (>60 ml/min/1.73 sqM); Potassium 4.6 mmol/L (3.5-5.1); Sodium 137 mmol/L (137-145)
--- NOTE | 2023-04-18 07:48 | P.CRDCN ---
History of Present Illness Consult date: 04/18/23 Chief complaint: chest pain History of present illness: The patient is a pleasant 53-year-old gentleman with sees Dr. Serna irregularly with a past medical history significant for coronary artery disease and prior stenting of the RCA as well as hypertension and dyslipidemia and smoking who currently is not taking any medications at home he stopped all his medication presented to the hospital complaining of chest discomfort. He was walking y esterday, when he said 6 beats discomfort in the upper back and upper chest he stated was different from what he experienced before when he underwent stenting of the RCA. No specific symptoms of shortness of breath or dizziness or lightheaded or anything of heart racing or fluttering or presyncope or syncope. Further investigation was performed including EKG showing sinus mechanism was no significant ST or T-wave abnormalities and cardiac enzymes came in to be unremarkable. There is a poor came in to be unremarkable. Currently he is chest pain-free The examination is remarkable for stable vital signs with regular rate and rhythm and clear breathing sounds bilaterally and no lower extremities edema noted Assessment Atypical chest discomfort CAD with prior stenting of the RCA Smoking Multiple comorbid conditions including hypertension dyslipidemia Plan Acute coronary event was ruled out Proceed with exercise treadmill stress test giving the normal EKG and with good functional capacity Follow-up with the patient Past Medical History Past Medical History: Coronary Artery Disease (CAD), Hyperlipidemia, Hypertension, Myocardial Infarction (NM) Last Myocardial Infarction Date:: 2013 History of Any Multi-Drug Resistant Organisms: None Reported Past Surgical History: Heart Catheterization With Stent Additional Past Surgical History / Comment(s): bilat knee scopes Past Anesthesia/Blood Transfusion Reactions: No Reported Reaction Date of Last Stent Placement:: 2013 Past Psychological History: No Psychological Hx Reported Smoking Status: Current every day smoker Past Alcohol Use History: None Reported Past Drug Use History: None Reported - Past Family History Mother Additional Family Medical History / Comment(s): bipolar, osteoparosis Father Family Medical History: Coronary Artery Disease (CAD), Rheumatoid Arthritis (RA) Sister(s) Additional Family Medical History / Comment(s): bipolar Brother(s) Family Medical History: Coronary Artery Disease (CAD) Additional Family Medical History / Comment(s): AICD placement Son(s) Additional Family Medical History / Comment(s): aspergers Daughter(s) Family Medical History: No Reported History Medications and Allergies Home Medications Medication Instructions Recorded Confirmed Type No Known Home Medications 04/17/23 04/17/23 History Allergies Allergy/AdvReac Type Severity Reaction Status Date / Time citalopram hydrobromide Allergy Rash/Hives Verified 04/17/23 16:44 [From [facility]] Physical Exam Vitals: Vital Signs Temp Pulse Pulse Resp BP BP Pulse Ox 04/18/23 02:00 98.1 F 76 13 109/67 94 L 04/17/23 21:00 97.7 F 67 18 131/78 98 04/17/23 20:32 68 18 126/78 97 04/17/23 20:20 99 04/17/23 19:31 71 18 115/81 98 04/17/23 14:04 97.6 F 77 18 135/84 97 FiO2 04/18/23 02:00 04/17/23 21:00 04/17/23 20:32 04/17/23 20:20 21 04/17/23 19:31 04/17/23 14:04 Intake and Output 04/17/23 04/18/23 04/18/23 22:59 06:59 14:59 Other: Voiding Method Toilet Toilet # Voids 1 1 Weight 127.006 kg Results 04/17/23 15:08 04/18/23 06:33 Cardiac Enzymes 04/17/23 04/17/23 04/17/23 Range/Units 15:08 15:08 17:50 AST 25 (17-59) U/L Troponin I <0.012 <0.012 (0.000-0.034) ng/mL 04/17/23 Range/Units 20:53 AST (17-59) U/L Troponin I <0.012 (0.000-0.034) ng/mL Coagulation 04/17/23 Range/Units 15:08 PT 9.4 (9.0-12.0) sec APTT 25.3 (22.0-30.0) sec CBC 04/17/23 Range/Units 15:08 WBC 7.2 (3.8-10.6) k/uL RBC 4.81 (4.30-5.90) m/uL Hgb 15.0 (13.0-17.5) gm/dL Hct 44.7 (39.0-53.0) % Plt Count 301 (150-450) k/uL Comprehensive Metabolic Panel 04/17/23 04/18/23 Range/Units 15:08 06:33 Sodium 136 L 137 (137-145) mmol/L Potassium 4.7 4.6 (3.5-5.1) mmol/L Chloride 106 105 (98-107) mmol/L Carbon Dioxide 21 L 25 (22-30) mmol/L BUN 11 12 (9-20) mg/dL Creatinine 0.70 0.74 (0.66-1.25) mg/dL Glucose 94 93 (74-99) mg/dL Calcium 8.7 8.6 (8.4-10.2) mg/dL AST 25 (17-59) U/L ALT 20 (4-49) U/L Alkaline Phosphatase 84 (38-126) U/L Total Protein 7.1 (6.3-8.2) g/dL Albumin 4.1 (3.5-5.0) g/dL Current Medications Generic Name Dose Route Start Last Admin Trade Name Freq PRN Reason Stop Dose Admin Acetaminophen 650 mg 04/17/23 21:01 04/17/23 21:27 Acetaminophen Tab 325 Mg Tab PO 650 mg Q6HR PRN Administration Fever and/ or Pain Hydrocodone Bitart/Acetaminophen 1 each 04/17/23 21:01 Hydrocodone/Apap 5-325mg 1 Each Tab PO Q6HR PRN Moderate to Severe Pain (4-10) Alprazolam 0.25 mg 04/17/23 19:43 Alprazolam 0.25 Mg Tab PO TID PRN Anxiety Aspirin 325 mg 04/18/23 09:00 Aspirin 325 Mg Tab PO DAILY [facility] Atorvastatin Calcium 20 mg 04/17/23 20:00 04/17/23 20:01 Atorvastatin 20 Mg Tab PO 20 mg DAILY [facility] Administration Nicotine 1 patch 04/17/23 20:00 04/17/23 20:01 Nicotine 14mg/24hr Patch TRANSDERM 1 patch DAILY [facility] Administration Nitroglycerin 0.4 mg 04/17/23 16:28 Nitroglycerin Sl Tabs 0.4 Mg Tab SUBLINGUAL Q5M PRN Chest Pain Nitroglycerin 1 inch 04/17/23 18:00 04/18/23 05:18 Nitroglycerin Oint 1 Inch/Gm Packet TOPICAL Not Given Q6HR [facility] Temazepam 15 mg 04/17/23 19:43 Temazepam 15 Mg Cap PO HS PRN Insomnia Intake and Output 04/17/23 04/18/23 04/18/23 22:59 06:59 14:59 Other: Voiding Method Toilet Toilet # Voids 1 1 Weight 127.006 kg 04/17/23 15:08 04/18/23 06:33
[2023-04-18 08:24] VITALS: BP 109/68; PULSE 72; RESP 16; TEMP 97.6
[2023-04-18] MEDS: NICOTINE 14MG/24HR PATCH TRANSDERM SCH (08:57)
[2023-04-18] MEDS: ATORVASTATIN 20 MG TAB PO SCH (08:58)
[2023-04-18] MEDS ORDERED: ASPIRIN 325 MG TAB PO SCH (09:00)
[2023-04-18 11:04] LABS: Chol/HDL Ratio 6.57 Ratio; LDL Cholesterol,Calculated 163.5 mg/dL
--- NOTE | 2023-04-18 13:02 | CA ---
Exercise Stress Test Report Name: Td Kidd Exam Date: 04/18/2023 10:13 Exam Location: [place] Ht (in): 73 Wt (lb): 280 BSA: 2.48 Ordering Phys: Roddy Trujillo MD Referring Phys: MARIA DEL CARMEN,, Technologist: Semaj Ching Age: 53 Gender: M : 1970 Procedure CPT: Indications: CP ICD-10 Codes: Patient History: CHEST PAIN, NUMBNESS IN FACE/NECK, ELEVATED CHOLESTEROL, FAMILY HX OF HEART DISEASE, CURRENT SMOKER 1.5 PPD X 40 YEARS, PRIOR SC, PRIOR CATH X 2 Medications: Meds past 24 hrs: Pretest Chest Pain: STRESS TEST Natan Protocol Exercise Duration (min:sec): 04:[address] Depressions (mm): Angina Score: Cifuentes Score: Resting HR (bpm): 78 Peak HR (bpm): 144 Resting BP (mmHg): 106 / 85 Peak BP (mmHg): 135 / 75 MPHR: 166 Target HR: 141 % MPHR: 87 METS: 7.1 Total Dose: Peak Dose: Atropine: Double Product: 77995 BP Response: Stress Termination: TARGET HR REACHED/MAX EXERTION Stress Symptoms: NO SYMPTOMS Stress Summary: ECG ANALYSIS Resting ECG: Stress ECG: CONCLUSIONS Good exercise tolerance Normal EKG in response to exercise Dr. Roddy Trujillo MD (Electronically Signed) Final Date: 18 April 2023 13:01
--- NOTE | 2023-04-19 14:14 | P.DS ---
Providers Date of admission: 04/17/23 16:29 Expected date of discharge: 04/18/23 Attending physician: Omer Denny Consults: 04/17/23 16:28 Consult Physician Urgent Consulting Provider: Lucian Hurtado Consult Reason/Comments: cp Do you want consulting provider notified?: Yes Primary care [facility] [place] [facility] Course: Final diagnosis Chest pain, possible unstable angina, negative stress test Coronary artery disease history with stenting History of myocardial infarction Hypertension Hyperlipidemia Continued ongoing nicotine dependence Obesity with a BMI of 36.9 DVT perplexes GI prophylaxis Full code Discharge disposition Patient is being discharged in a stable condition with guarded prognosis to home. Patient will follow-up with Dr. Mauro in the outpatient setting upon discharge. Patient is to follow-up with cardiology outpatient as scheduled. Total time taken is greater than 35 minutes. Hospital course This is a 53-year-old male who was recently admitted with chest pain and left shoulder pain and being closely monitored. Patient was seen and evaluated by cardiology recommending stress test and patient agreeable to the treadmill stress test. Stress test was performed and was negative and was cleared by cardiology. Patient with noncompliance of medications and follow-up has not been taking his medications as prescribed and will be resumed on occasions as mentioned below. Patient also instructed to follow-up with primary care provider on discharge. Please refer to cardiology notes for further HPI. Currently no reports of chest pain, shortness of breath, or palpitations. Patient is afebrile. No reports of nausea or vomiting and patient is tolerating diet. Patient will be discharged home today Physical exam: Gen: This is a 53-year-old male who is awake, alert and oriented 3, well- developed, well-nourished, obese HEENT: Head is atraumatic, normocephalic. Pupils equal, round. Sclerae is anicteric. NECK: Supple. No JVD. No lymphadenopathy. No thyromegaly. LUNGS: Clear to auscultation. No wheezes or rhonchi. No intercostal retractions. HEART: Regular rate and rhythm. No murmur. ABDOMEN: Soft. Bowel sounds are present. No masses. No tenderness. EXTREMITIES: No pedal edema. No calf tenderness. NEUROLOGICAL: Patient is awake, alert and oriented x3. Cranial nerves 2 through 12 are grossly intact. Please refer to medication reconciliation sheet for a list of medications. The impression and plan of care has been dictated by Yumiko Guzman, Nurse Practitioner as directed. Dr. Eduin MD I have performed a history and examination and MDM of this patient, discussed the same with the dictator, and agree with the dictator's assessment and plan as written ,documented as a scribe. Based on total visit time, I have performed more than 50% of the visit. Patient Condition at Discharge: Stable Plan - Discharge Summary New Discharge Prescriptions: New Nicotine 14Mg/24Hr Patch [Habitrol] 1 patch TRANSDERM DAILY #30 patch Atorvastatin [Lipitor] 20 mg PO DAILY #30 tab Nitroglycerin Sl Tabs [Nitrostat] 0.4 mg SUBLINGUAL Q5M PRN #20 tab PRN Reason: Chest Pain Acetaminophen Tab [Tylenol] 650 mg PO Q6HR PRN #30 tab PRN Reason: Fever And/ Or Pain Aspirin 81 mg PO DAILY #30 tab Nicotine 14Mg/24Hr Patch [Habitrol] 1 patch TRANSDERM DAILY #30 patch Atorvastatin [Lipitor] 20 mg PO DAILY #30 tab Nitroglycerin Sl Tabs [Nitrostat] 0.4 mg SUBLINGUAL Q5M PRN #20 tab PRN Reason: Chest Pain Aspirin 81 mg PO DAILY 30 Days #30 tab Metoprolol Tartrate 25 mg PO BID 30 Days #60 tab Clopidogrel [Plavix] 75 mg PO DAILY #30 tablet Lidocaine 5% Patch [Lidoderm 5% Patch] 1 each TP DAILY #30 patch Acetaminophen Tab [Tylenol] 650 mg PO Q6HR PRN #30 tab PRN Reason: Fever And/ Or Pain Discharge Medication List Acetaminophen Tab [Tylenol] 650 mg PO Q6HR PRN #30 tab 04/18/23 [Rx] Acetaminophen Tab [Tylenol] 650 mg PO Q6HR PRN #30 tab 04/18/23 [Rx] Aspirin 81 mg PO DAILY #30 tab 04/18/23 [Rx] Aspirin 81 mg PO DAILY 30 Days #30 tab 04/18/23 [Rx] Atorvastatin [Lipitor] 20 mg PO DAILY #30 tab 04/18/23 [Rx] Atorvastatin [Lipitor] 20 mg PO DAILY #30 tab 04/18/23 [Rx] Clopidogrel [Plavix] 75 mg PO DAILY #30 tablet 04/18/23 [Rx] Lidocaine 5% Patch [Lidoderm 5% Patch] 1 each TP DAILY #30 patch 04/18/23 [Rx] Metoprolol Tartrate 25 mg PO BID 30 Days #60 tab 04/18/23 [Rx] Nicotine 14Mg/24Hr Patch [Habitrol] 1 patch TRANSDERM DAILY #30 patch 04/18/23 [Rx] Nicotine 14Mg/24Hr Patch [Habitrol] 1 patch TRANSDERM DAILY #30 patch 04/18/23 [Rx] Nitroglycerin Sl Tabs [Nitrostat] 0.4 mg SUBLINGUAL Q5M PRN #20 tab 04/18/23 [Rx] Nitroglycerin Sl Tabs [Nitrostat] 0.4 mg SUBLINGUAL Q5M PRN #20 tab 04/18/23 [Rx] Follow up Appointment(s)/Referral(s): Juan Mauro MD [Primary Care Provider] - 1-2 days Roddy Trujillo MD [STAFF PHYSICIAN] - 05/02/23 8:45 am Activity/Diet/Wound Care/Special Instructions: Activity Limited until follow-up Follow-up with primary care provider on discharge Follow-up with cardiology outpatient Continue taking medications as prescribed Continue heart healthy diet Discharge Disposition: HOME SELF-CARE
== END 2023-04-18 14:57 | disposition home or self-care (01) ==
LOC: EC 13:52 → 6NMEDSUR 16:29
PROVIDERS: ADMIT Hospitalist; ATTEND Hospitalist
DX: R52 Pain, unspecified (principal); R07.9 Chest pain, unspecified; I25.10 Atherosclerotic heart disease of native coronary artery without angina pectoris; I25.2 Old myocardial infarction; I10 Essential (primary) hypertension; E78.5 Hyperlipidemia, unspecified; F17.200 Nicotine dependence, unspecified, uncomplicated; E66.9 Obesity, unspecified; Z68.36 Body mass index [BMI] 36.0-36.9, adult; Z91.148 Patient's other noncompliance with medication regimen for other reason; Z95.5 Presence of coronary angioplasty implant and graft; Z98.890 Other specified postprocedural states; Z81.8 Family history of other mental and behavioral disorders; Z82.62 Family history of osteoporosis; Z82.49 Family history of ischemic heart disease and other diseases of the circulatory system; Z82.61 Family history of arthritis; Z79.02 Long term (current) use of antithrombotics/antiplatelets; Z79.82 Long term (current) use of aspirin; Z79.899 Other long term (current) drug therapy; Z88.8 Allergy status to other drugs, medicaments and biological substances
CPT/HCPCS: 99285; 36415; 94760; 93005; 93017; 85379; 80061; 80053; 80048; 82150; 83735; 84484; 85025; 85610; 85730; 71046; G0378 ×2; S4990 ×2

== ENCOUNTER 2024-07-30 19:35 | Emergency (ER) | payer OTHER, BC ==
[2024-07-30 19:43] VITALS: RESP 18; TEMP 98.3
[2024-07-30 20:14] VITALS: BP 132/81; PULSE 91
== END 2024-07-30 20:14 | disposition home or self-care (01) ==
LOC: EC 19:35
DX: Z02.83 Encounter for blood-alcohol and blood-drug test (principal)
CPT/HCPCS: 99499